=== PATIENT | female | born 1960 | race African-American/Black ===

== ENCOUNTER 2021-02-24 06:46 | Inpatient (IN) | payer MEDICAID, SELFPAY ==
[2021-02-24] VITALS (17 sets, daily range): BP systolic 117–167; BP diastolic 90–135; PULSE 43–137; RESP 18–26; TEMP 36.2–37.1; O2SAT 78–100; BMI 56.2
--- NOTE | ~2021-02-24 | XR_ITS ---
EXAMINATION: XR chest 1V portable DATE: 03/03/2021 15:13 INDICATION: Shortness of breath. Pneumonia. TECHNIQUE: A single frontal view of the chest was obtained. COMPARISON: Chest single view 02/24/2021 FINDINGS: There are bilateral perihilar airspace opacities. No pleural effusion or pneumothorax. Card iomegaly is noted. IMPRESSION: 1. Stable bilateral perihilar airspace opacities, consistent with mild pulmonary edema versus atypica l pneumonia. 2. Cardiomegaly. Reviewed, dictated and finalized at location A. IMPRESSION: 1. Stable bilateral perihilar airspace opacities, consistent with mild pulmonar y edema versus atypical pneumonia. 2. Cardiomegaly.
--- NOTE | ~2021-02-24 | XR_ITS ---
XR chest 1V portable DATE: 02/24/2021 07:16 INDICATION: Shortness of breath TECHNIQUE: Portable AP chest on 02/24/2021 at 0708 hours COMPARISON: None FINDINGS: There is cardiomegaly. There is aortic unfolding. There bilateral extensive pulmonary infiltrates, more prominent centrally, which may be secondary to pulmonary edema. Pneumonia is also considered in the differential diagnosis. No pleural effusion or pneumothorax is evident. Diffuse osteopenia. Thoracic scoliosis and degenerative spurring. IMPRESSION: Cardiomegaly and extensive bilateral pulmonary infiltrates; differential diagnosis includ es pulmonary edema and bilateral pneumonia Reviewed, dictated and finalized at location A. IMPRESSION: Cardiomegaly and extensive bilateral pulmonary infiltrates; differe ntial diagnosis includes pulmonary edema and bilateral pneumonia
--- NOTE | 2021-02-24 06:53 | ECG_ITS ---
Measurements Intervals [place] Rate: 136 P: NV: 0 QRS: 24 QRSD: 98 T: 218 QT: 304 QTc: 458 Interpretive Statements ATRIAL FIBRILLATION WITH RAPID VENTRICULAR RESPONSE VENTRICULAR PREMATURE COMPLEX BORDERLINE ST-T WAVE ABNORMALITY- INF/LAT LEADS ABNORMAL ECG Electronically Signed On 02-24-2021 7:34:59 CDT by Gerson Delong D.O.
--- NOTE | 2021-02-24 07:03 | ED.CHESTPAIN ---
HPI - Chest Pain General Chief Complaint: Chest Pain Stated Complaint: SOB, rapid heart rate Time Seen by Provider: 02/24/21 07:02 Source: patient and EMS Mode of arrival: EMS Limitations: no limitations History of Present Illness HPI narrative: Patient is a 60-year-old female with a history of morbid obesity, nonischemic cardiomyopathy, CHF, atrial fibrillation, hypertension who presents from home this morning for evaluation of shortness of breath. Patient states she has been short of breath over the past 24 hours. She denies cough, fever, but states she feels very weak. She denies loss of sense of taste or smell. She denies any abdominal pain, dysuria or hematuria. She states she has been eating and drinking enough. She lives at home with her daughter and grandson. Patient typically is able to ambulate short distances but has been unable to ambulate over the past 24 hours. She denies recent illnesses or history of Covid. Patient states that she is compliant with her medication. She denies any pleuritic pain. She denies any back pain. She denies any focal weakness or numbness. Last admission to this facility was in 2018, for CHF exacerbation secondary to atrial fibrillation with RVR. In past patient has been on Xarelto. 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 She states she has not been taking her anticoagulation. Related Data Allergies Allergy/AdvReac Type Severity Reaction Status Date / Time No Known Allergies Allergy Unverified 12/21/17 14:39 Review of Systems Review of Systems: Narrative: CONSTITUTIONAL: Denies fever, chills, or sweats. EYES: Denies visual changes ENT: Denies rhinorrhea, congestion, sore throat, or otalgia. CARDIOVASCULAR: Denies chest pain, palpitations, or edema. RESPIRATORY: Denies cough, reports shortness of breath GASTROINTESTINAL: Denies abdominal pain, nausea, vomiting, or diarrhea. GENITOURINARY: Denies dysuria or hematuria. SKIN: Denies rash or itching. MUSCULOSKELETAL: Denies back pain, joint pain, or myalgia. NEUROLOGIC: Denies headache, numbness, reports feeling diffusely weak PMFSH Social History Social History (Updated 02/24/21 @ 07:27 by Deepti Villanueva MD) Smoking status: Never smoker Alcohol intake: never Substance use: never Gender identity (if verbalized by the patient): Female Exam Narrative: Exam Narrative: GENERAL: Awake, alert, conversant HEAD: Normocephalic, atraumatic. EYES: PERRLA and EOMI. ENT: Nares clear, no rhinorrhea or epistaxis. Mucous membranes dry NECK: Supple. CHEST: No respiratory distress, crackles bilaterally of lower lobes, no tachypnea HEART: Normal rate, irregular rhythm ABDOMEN: Obese, Non distended, non tender EXTREMITIES: Normal range of motion.Bilateral lower extremity edema, 1+ mid shins SKIN: Warm, dry, no rashes. NEURO:No focal deficits. Alert and oriented x3 Course Vital Signs Vital signs: Vital Signs Temperature 36.7 C 02/24/21 06:36 Pulse Rate 127 H 02/24/21 06:36 Respiratory Rate 24 H 02/24/21 06:36 Blood Pressure 158/120 H 02/24/21 06:36 Pulse Oximetry 95 02/24/21 06:36 Temperature 36.7 C 02/24/21 06:36 Pulse Rate 121 H 02/24/21 08:08 Respiratory Rate 24 H 02/24/21 06:36 Blood Pressure 158/120 H 02/24/21 06:36 Pulse Oximetry 95 02/24/21 06:36 MDM - Chest Pain Differential Diagnosis Differential diagnosis: Likely stable angina, unstable angina pectoris, atypical chest pain, st elevation myocardial infarction and chest pain Lab Data Result diagrams: 02/24/21 06:55 02/24/21 06:55 Labs: Lab Results 02/24/21 02/24/21 02/24/21 Range/Units 06:55 06:55 06:55 WBC 5.8 (4.5-10.0) K/mm3 RBC 4.13 L (4.2-5.4) M/mm3 Hgb 13.1 (12.0-15.0) g/dL Hct 41.1 (37.0-47.0) % MCV 99.5 (80-100) fl MCH 31.7 (26-34) pg MCHC 31.9 L (32-36) g/dl RDW 17.2 H (11.5-14.5) % Plt Count 231 (150-375) k/mm3 MPV 10.3
[2021-02-24 07:13] LABS: Basophils Absolute Auto 0.1 K/mm3 (0.0-0.1); Eosinophils Absolute Auto 0.1 K/mm3 (0-0.3); Eosinophils Percent Auto 2.4 % (0-4.4); Hematocrit 41.1 % (37.0-47.0); Hemoglobin 13.1 g/dL (12.0-15.0); Immature Granulocyte Absolute 0.08 K/mm3 (0.00-0.031); Immature Granulocyte Percent A 1.4 % (0-0.5); Lymphocytes Absolute Auto 1.88 K/mm3 (0.9-3.2); Lymphocytes Percent Auto 32.2 % (18.3-44.2); Mean Corpuscular HGB Conc 31.9 g/dl (32-36); Mean Corpuscular Hemoglobin 31.7 pg (26-34); Mean Corpuscular Volume 99.5 fl (80-100); Mean Platelet Volume 10.3 fl (7.4-10.4); Monocytes Absolute Auto 0.7 K/mm3 (0.1-0.6); Monocytes Percent Auto 11.1 % (2.6-8.5); Neutrophils Percent Auto 51.9 % (45.5-73.1); Nucleated Red Blood Cells Absolute Auto 0.2 K/mm3 (0.0-0.012); Nucleated Red Blood Cells Perc 3.8 % (0.0-0.2); Platelet Count Result 231 k/mm3 (150-375); Red Blood Count 4.13 M/mm3 (4.2-5.4); Red Cell Distribution Width 17.2 % (11.5-14.5); White Blood Count 5.8 K/mm3 (4.5-10.0)
[2021-02-24 07:14] LABS: Alanine Aminotransferase 17 U/L (4-35); Albumin Level 4.1 g/dL (3.5-5.1); Alkaline Phosphatase 96 U/L (38-126); Anion Gap 10 mmol/L (8-16); Aspartate Amino Transferase 27 U/L (14-36); Bilirubin,Total 4.2 mg/dL (0.2-1.3); Blood Urea Nitrogen 14 mg/dL (7-17); Carbon Dioxide 27 mmol/L (22-30); Chloride 104 mmol/L (98-107); Estimated CRCL calculation 61 ml/min; Estimated Glomerular Filt Rate 50; Glucose 128 mg/dL (65-105); Potassium 3.9 mmol/L (3.4-5.0); Sodium 141 mmol/L (137-145)
[2021-02-24 07:43] LABS: NT Pro B Type Natriuretic Pept 3660 PG/ML (5-100)
[2021-02-24 08:07] LABS: INR 1.2; Prothrombin Time 15.6 Seconds (11.1-14.7)
[2021-02-24 08:08] LABS: Partial Thromboplastin Time 29.4 SECONDS (22.3-36.8)
[2021-02-24] MEDS: dilTIAZem HCl INJ 25 MG/5 ML VIAL 10 MG IV PUSH (08:12)
[2021-02-24] MEDS: SODIUM CHLORIDE 0.9% IV 500 ML 999 ML IV CONT (08:14)
[2021-02-24 08:28] LABS: Troponin I 0.021 ng/mL (0.000-0.034)
[2021-02-24] MEDS: FUROSEMIDE INJ 40 MG/4 ML VIAL IV PUSH ×2 (09:00→16:09)
--- NOTE | 2021-02-24 09:34 | PC.NURSE ---
Called to give report on pt. Was told that i will have to have that nurse call you back .
[2021-02-24 09:35] LABS: Lactic Acid Reflex 1.7 mmol/L (0.7-2.1)
--- NOTE | 2021-02-24 12:37 | PC.NURSE ---
This patient, Kate Perez, was admitted to IMU Room 213-01. Patient/family oriented to hospital policies and general routines including ID bracelet, bed and alarms, visiting hours, pain management, procedures, bathroom and other care routines, personal items, smoking policy, room service/diet, and visiting hours. Information on how to activate the Rapid Response Team has been discussed. Patient/Family are encouraged to report perceived risks to care and to ask questions if they do not understand what they are told or what they should do.
--- NOTE | 2021-02-24 13:10 | PM.IMHP ---
H&P: HPI History of Present Illness Date/Time: 02/24/21 13:10 <Christi Santos PA-C - Last Filed: 02/24/21 22:21> Chief Complaint: Shortness of breath. <Christi Santos PA-C - Last Filed: 02/24/21 22:21> Narrative: This is a 60-year-old morbidly obese female with a reported history of congestive heart failure, hypertension, and atrial fibrillation who presented to the emergency department earlier today via EMS from home for evaluation of shortness of breath. She is not a great historian and it does not sound as though she has followed up with any doctors for several years, with her last prescriptions being from April 2020. She has suffered from dyspnea on exertion for many years though it has gotten worse over the past week or so. She reports chronic lower extremity edema which is relatively unchanged but she has had periods of orthopnea and in fact was told that she needs sleep study sometime last year but she never had it done due to the COVID pandemic. On arrival to the emergency department today she was found to be in atrial fibrillation with rapid ventricular response for which she was started on a Cardizem drip with some improvement in her rate. Aside from feeling short of breath she does not really have symptoms of the AFib in specifically denies feelings of racing heart and palpitations. She does not drink any significant amounts of caffeine or alcohol. She has not had chest pain or pleuritic pain. Appetite has been good. No nausea or vomiting. She also denies fever, chills, sweats, cold and flu symptoms, and cough. No exposure to those positive for COVID-19. <Christi Santos PA-C - Last Filed: 02/24/21 22:21> Review of Systems Review of Systems: Narrative: Twelve systems were reviewed with pertinent positives and negatives as per HPI. Weight has remained stable if not up a bit from baseline. She has gotten progressively more debilitated over the past 1 year and it sounds like she uses a wheelchair a lot of the time due to weakness and deconditioning. No exertional chest pain. She does report hypersomnolence and orthopnea. No history of sleep apnea or diabetes. No thyroid disease. Except as documented, all other systems were reviewed and are negative. <Christi Santos PA-C - Last Filed: 02/24/21 22:21> [facility] Past Medical History Medical History: Medical History (Updated 02/24/21 @ 22:19 by Christi Santos PA-C) Arthritis Hypertension Morbid obesity Paroxysmal atrial fibrillation Shingles <Christi Santos PA-C - Last Filed: 02/24/21 22:21> Surgical History Surgical History: Surgical History (Updated 02/24/21 @ 22:13 by Christi Santos PA-C) No history of previous surgery <Christi Santos PA-C - Last Filed: 02/24/21 22:21> Family History Family History: Family History Mother Hypertension Other Dementia Pancreatic cancer <Christi Santos PA-C - Last Filed: 02/24/21 22:21> Social History Social History: Social History (Updated 02/24/21 @ 22:13 by Christi Santos PA-C) Social History: Surrogate decision maker: Charleen Perez, child. Code status: Full code. Smoking status: Never smoker Alcohol intake: never Substance use: never Additional living arrangements comments: Patient lives [place] with her daughter and grandson. 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 Gender identity (if verbalized by the patient): Female Spiritual care concerns: No <Christi Santos PA-C - Last Filed: 02/24/21 22:21> Meds Home Medications and Allergies Home medications: Home Medications Medication Instructions Recorded Confirmed Type No Home Medications 02/24/21 02/24/21 History <Christi Santos PA-C - Last Filed: 02/24/21 22:21> Allergies/Adverse reactions: Allergies Allergy/AdvRea
[2021-02-24 14:50] LABS: Troponin I 0.017 ng/mL (0.000-0.034)
[2021-02-24 15:07] LABS: Magnesium 1.7 mg/dL (1.6-2.3)
[2021-02-24 15:40] LABS: Hemoglobin A1C 5.6 % (<5.7)
--- NOTE | 2021-02-24 16:04 | PM.CNCAR ---
Assessment and Plan Additional Plan This is a 60-year-old black female with: History of some shortness of breath very little of any detail can be gleaned from her in terms of history of the onset of the symptoms. By physical exam she does not appear to be in a state of volume overload/decompensated heart failure. According to the record she has a long history of hypertension and atrial fibrillation and is not been on any of her medication for a while it would appear. As such it is not surprising that she is hypertensive and is in atrial fib with a rapid response. For the time being IV diltiazem has been used to try to provide rate control I am going to let this run for today up titrate her metoprolol and ALL-inhibitor therapy has been started. Probably tomorrow we will shift her to an oral anticoagulant. Her cardiac silhouette on chest x-ray looks quite large I will obtain an echocardiogram to look at left ventricular systolic function. It sounds like she has not had any direct cardiac follow-up in probably 2 or 3 years. Guru Berrios MD [facility] History of Present Illness History of Present Illness Consult date/time: 02/24/21 16:04 Consult reason: atrial fibrillation Reason For Visit: Pneumonia/A fib with RVR/CHF Narrative: This is a 60-year-old black female that I am seeing at the request of the hospitalist to assist with management of atrial fibrillation and shortness of breath. She is unknown to me and appears to have not been hospitalized here at [facility] in the past. Patient is an extremely poor historian recurrent terms of the details of any of this. She can't really provide any history as to the time course of the dyspnea or any other symptom she denies having any chest pain. She was seen in the emergency room earlier today and felt to be in congestive heart failure according to the chart she was treated with some intravenous diltiazem to provide heart rate control and admitted to the hospital. The patient recalls having seen a physician for cardiology services either at [place] or possibly [facility]. I did look in the electronic medical record in the office and the patient did see 1 of the physicians in the Department of Cardiology at [place] with the last appointment occurring about 3 years ago. At that time history indicated they were following this patient for atrial fibrillation and significant hypertension her medical regimen included amiodarone, moderate dose of metoprolol, systemic anticoagulation, losartan and hydralazine. The chart does indicate some evidence of renal insufficiency. According to the record and the patient sounds like she has not been on any of her medication for an unknown period of time she states that she had a hard time seeing her physician because of the pandemic and it sounds like rather suspicious that she has not been on any of her medication for some time. In the hospital she is in atrial fib with a moderately rapid ventricular response. Her chest x-ray shows very large cardiac silhouette and pulmonary congestion bilaterally. Other than being a very poor historian she denies any other specific complaints at this time. Review of Systems Review of Systems: ROS unobtainable: Yes unobtainable due to mental status PMFSH Past Medical History Medical History (Updated 02/24/21 @ 13:37 by Christi Santos PA-C) Arthritis Deep venous thrombosis Hypertension Morbid obesity Nonischemic cardiomyopathy Paroxysmal atrial fibrillation Pulmonary embolism Shingles Family History Family History (Updated 02/24/21 @ 13:16 by Christi Santos PA-C) Mother Hypertension Other Dementia Pancreatic cancer Social History Social History (Updated 02/24/21 @ 13:26 by Christi Santos PA-C) Social History: Surrogate decision maker: Charleen Perez, child. Code status: Full code. Smoking status: Never smoker Alcohol intake: never Substance use: never Additional living arrangements co
[2021-02-24] MEDS: ATORVASTATIN 40 MG TABLET PO (16:09)
[2021-02-24] MEDS: lisinopriL 20 MG TABLET PO (16:09)
[2021-02-24] MEDS: ENOXAPARIN 60 MG/0.6 ML SYRINGE 50 MG SUB-Q (16:10)
[2021-02-24] MEDS: ENOXAPARIN 100 MG/ML SYRINGE SUB-Q (16:10)
[2021-02-24] MEDS: METOPROLOL TARTRATE 50 MG TAB PO (18:26)
[2021-02-24 19:04] LABS: SARS-CoV-2 RNA PCR Negative
[2021-02-24] MEDS: TOLNAFTATE 1% POWDER 45 GM BTL 1 APPLIC TOPICAL (21:23)
[2021-02-25] VITALS (16 sets, daily range): BP systolic 113–149; BP diastolic 83–110; PULSE 82–115; RESP 12–20; TEMP 36.1–36.6; O2SAT 94–100
--- NOTE | 2021-02-25 | ECHO_ITS ---
Patient Info Name: Kate Perez Age: 60 years : 1960 Gender: Female Ht: 64 in Wt: 348 lbs BSA: 2.78 m2 HR: 110 bpm BP: 116 / 83 mmHg Technical Quality: Good Exam Date: 02/25/2021 8:59 AM Exam Location: [facility] Patient Status: Inpatient Admit Date: 02/24/2021 Staff Ordering Physician: Deepti Villanueva MD Dry Cleaner Hand: Oiron Shelton, SENDY, RT Attending Provider: Joelle Cook MD Referring Physician: Kay GONZALEZ; Exam Type: CA echo doppler color flow Study Info Indications I50.9 - Heart failure, unspecified Complete two-dimensional, color flow and Doppler transthoracic echocardiogram is performed. Summary 1. Complete two-dimensional, color flow and Doppler transthoracic echocardiogram is performed. 2. Borderline LV enlargement, mild LVH, variable contractility due to atrial fibrillation, ejection fraction approximately 40%; indeterminate diastolic function. Severe left atrial enlargement. Moderate mitral regurgitation, eccentric jet. Normal aortic valve without stenosis. Moderate to severe tricuspid regurgitation, moderate pulmonary hypertension, RVSP 51 mmHg. Dilated IVC. Left Ventricle Left ventricular chamber dimension is mildly enlarged. Left ventricular systolic function is moderately reduced, estimated at 35-40%. There is mildly increased left ventricular wall thickness. Left Atria Left atrial chamber dimension is severely enlarged. Right Atria Right atrial chamber dimension is normal. Aortic Valve The aortic valve is normal. There is no aortic valve stenosis. Pulmonic Valve The pulmonic valve is normal. There is trace pulmonic regurgitation. Mitral Valve The mitral valve has normal leaflets. There is mild to moderate mitral valve regurgitation. Tricuspid Valve The tricuspid valve leaflets are normal. There is moderate tricuspid valve regurgitation. Moderate pulmonary hypertension, estimated pulmonary arterial systolic pressure is 51 mmHg. Pericardium/Pleural The pericardium appears normal. Inferior Vena Cava Dilated inferior vena cava with <50% collapse upon inspiration consistent with elevated right atrial pressure, 15 mmHg. Aorta The aortic root size at the sinus of Valsalva is normal. Left Ventricular Outflow Tract Name Value Normal LVOT 2D LVOT Diameter 2.0 cm LVOT Doppler LVOT Peak Gradient 2 mmHg LVOT Mean Gradient 1 mmHg LVOT VTI 12 cm LVOT VTI/AV VTI Ratio 0.8 LVOT Stroke Volume 37 ml LVOT CO 3.6 l/min LVOT CI 1.3 l/min/m2 Mitral Valve Name Value Normal MV Doppler MV Peak Gradient 2 mmHg MV Mean Gradient 1 mmHg
[2021-02-25] MEDS: ENOXAPARIN 60 MG/0.6 ML SYRINGE 50 MG SUB-Q ×2 (03:16→17:45)
[2021-02-25] MEDS: ENOXAPARIN 100 MG/ML SYRINGE SUB-Q ×2 (03:16→17:46)
[2021-02-25 09:26] LABS: Hematocrit 37.9 % (37.0-47.0); Hemoglobin 11.8 g/dL (12.0-15.0); Mean Corpuscular HGB Conc 31.1 g/dl (32-36); Mean Corpuscular Hemoglobin 31.6 pg (26-34); Mean Corpuscular Volume 101.6 fl (80-100); Mean Platelet Volume 10.5 fl (7.4-10.4); Platelet Count Result 204 k/mm3 (150-375); Red Blood Count 3.73 M/mm3 (4.2-5.4); Red Cell Distribution Width 17.3 % (11.5-14.5); White Blood Count 6.2 K/mm3 (4.5-10.0)
[2021-02-25] MEDS: METOPROLOL TARTRATE 50 MG TAB PO ×2 (09:26→20:08)
[2021-02-25] MEDS: FUROSEMIDE INJ 40 MG/4 ML VIAL IV PUSH ×2 (09:26→17:46)
[2021-02-25] MEDS: TOLNAFTATE 1% POWDER 45 GM BTL 1 APPLIC TOPICAL ×2 (09:27→20:09)
[2021-02-25 09:32] LABS: Anion Gap 4 mmol/L (8-16); Blood Urea Nitrogen 18 mg/dL (7-17); Calcium 8.2 mg/dL (8.4-10.2); Carbon Dioxide 30 mmol/L (22-30); Chloride 106 mmol/L (98-107); Cholesterol 173 mg/dL (0-200); Estimated CRCL calculation 58 ml/min; Estimated Glomerular Filt Rate 50; Glucose 117 mg/dL (65-105); HDL Direct 25 mg/dL; Magnesium 1.5 mg/dL (1.6-2.3); Potassium 3.5 mmol/L (3.4-5.0); Sodium 140 mmol/L (137-145); Triglycerides 45 mg/dL (<150)
--- NOTE | 2021-02-25 09:37 | PM.PNCARD ---
Progress Note: A&P Assessment and Plan (1) Atrial fibrillation with rapid ventricular response: Code(s): I48.91 - Unspecified atrial fibrillation Status: Acute Assessment and Plan: Patient remains in atrial fibrillation with RVR with heart rates in 110s to 120s. Diltiazem was discontinued last night due to bradycardia with heart rates in 40s. Currently, patient's heart rates are in 110s to 120s. Bedside echocardiogram on my personal evaluation shows variable LV contractility with calculated EF about 35%. -continue metoprolol tartrate at current dose for now. -add ACEI or ARB when able. -anticoagulation with low-molecular weight heparin. Patient will need chronic anticoagulation at discharge, however, she apparently has history of noncompliance which is unfortunately going to make her care very challenging. Spoke with patient about importance of medication compliance and outpatient follow-up. Uncertain, if she was able to comprehend everything. -patient likely has OMEGA, which may need to be addressed as well. (2) Acute exacerbation of congestive heart failure: Code(s): I50.9 - Heart failure, unspecified Status: Acute Assessment and Plan: Continue diuresis with furosemide Subjective Date/time seen: 02/25/21 09:37 Date of Service: 02/25/2021 60-year-old female with history of atrial fibrillation,? CHF, noncompliance. Patient presented to the emergency department via EMS from home for evaluation of shortness of breath, found to be in atrial fibrillation with RVR. Interval history: Patient reports modest improvement in her shortness of breath. Denies chest pain. Her diltiazem was put on hold last night due to significant bradycardia with heart rate in 40s. Current heart rates are in 110s to 120s. Exam Narrative: Exam Narrative: PHYSICAL EXAMINATION: GENERAL: Morbidly obese, somewhat somnolent MENTAL STATUS: Flat affect EYES: Extraocular movements intact, no pallor EARS: External ears appear normal, hearing grossly normal NOSE: Normal and patent, no discharge MOUTH: Mucous membranes moist, tongue normal NECK: Thick neck CHEST: Decreased effort, decreased breath sounds HEART: Tachycardic, irregularly irregular rhythm ABDOMEN: Soft, nontender NEUROLOGICAL: Somnolent, speech coherent MUSCULOSKELETAL: No major deformity, no amputation EXTREMITIES: Mild pedal edema, no clubbing, no cyanosis SKIN: no rash on the exposed area, no cyanosis PSYCHIATRIC: Flat affect Objective Data Vital Signs Vital Signs: Vital Signs - 24 hr 02/24/21 10:18 02/24/21 10:49 02/24/21 12:00 Temperature 36.6 C 37.1 C Pulse Rate 89 134 H 111 H Respiratory Rate 22 H 20 24 H Blood Pressure 155/135 H 167/104 H 152/116 H Pulse Oximetry 100 100 100 02/24/21 13:32 02/24/21 14:00 02/24/21 16:00 Temperature 36.7 C Pulse Rate 120 H 118 H 137 H Respiratory Rate 26 H Blood Pressure 156/123 H Pulse Oximetry 98 02/24/21 16:08 02/24/21 18:00 02/24/21 18:26 Temperature Pulse Rate 120 H 113 H 128 H Respiratory Rate Blood Pressure Pulse Oximetry 02/24/21 20:00 02/24/21 21:00 02/24/21 22:00 Temperature 36.2 C L Pulse Rate 85 43 L 83 Respiratory Rate 22 H Blood Pressure 117/90 Pulse Oximetry 97 02/24/21 22:45 02/24/21 23:14 02/24/21 23:28 Temperature Pulse Rate 81 Respiratory Rate 18 Blood Pressure Pulse Oximetry 93 78 L 95 02/25/21 00:00 02/25/21 02:00 02/25/21 04:00 Temperature 36.3 C L 36.1 C L Pulse Rate 85 83 82 Respiratory Rate 16 18 Blood Pressure 113/95 H 116/83 Pulse Oximetry 95 97 02/25/21 06:00 02/25/21 08:00 02/25/21 09:26 Temperature 36.6 C Pulse Rate 84 99 93 Respiratory Rate 16 Blood Pressure 138/94 H Pulse Oximetry 100 Intake/Output Intake/Output: Intake & Output 02/22/21 02/23/21 02/24/21 02/25/21 23:59 23:59 23:59 23:59 Intake Total 1840 Output Total 1450 1000 Balance 390 -1000
[2021-02-25 09:43] LABS: LDL Cholesterol Direct 129 mg/dL
[2021-02-25] MEDS: PERFLUTREN LIPID MICROSPHERES 1.5 ML VIAL DILUTED TO 10 ML TOTAL VOLUME IV PUSH (09:45)
[2021-02-25] MEDS: ATORVASTATIN 40 MG TABLET PO (11:55)
[2021-02-25] MEDS: lisinopriL 20 MG TABLET PO (11:55)
[2021-02-25 15:23] LABS: Base Excess ABG 2.7 mEq/l (+/-2.0); Fractional Inspired Oxygen 28 %; HCO3 ABG 29.3 mEq/l (22.0-26.0); Oxygen Content ABG 16.6 %vol (16.0-22.0); Oxygen Saturation ABG 96.9 % (95.0-100.0); Oxyhemoglobin 95.6 % THb (90.0-100.0); PCO2 ABG 54.5 mmHg (35.0-45.0); PO2 ABG 96.3 mmHg (80.0-100.0); PO2 FiO2 Ratio Arterial Blood 3.44 %; Total Hemoglobin 12.3 g/dL (12.0-18.0); pH ABG 7.349 (7.350-7.450)
[2021-02-25 15:24] LABS: Device NASAL CANNULA; Modified Allen's Test Pass; Site Drawn LEFT RADIAL
--- NOTE | 2021-02-25 16:16 | PM.IMPN ---
Progress Note: A&P Assessment and Plan (1) Atrial fibrillation with rapid ventricular response: Code(s): I48.91 - Unspecified atrial fibrillation Status: Acute Assessment and Plan: She is currently on a Cardizem drip without much improvement in her rate. I have started her on metoprolol q.12 hours in the hopes that this will provide better rate control. She has been started on Lovenox 1 milligram/kilogram b.i.d. and she will need to switch to an oral anticoagulant tomorrow. She does have enlarged cardiac silhouette on imaging and an echocardiogram has been ordered for further evaluation. I will also check a TSH as well as apnea link. 02/25/21 16:16 patient is 60-year-old female with history of atrial fib, CHF, presented emergency depart with shortness of breath and patient was found and atrial fibrillation with RVR patient was started on diltiazem drip from urgency depart however patient had bradycardia and the drip was stopped, however this morning patient was seen by Cardiology and her heart rate was 110-120 and patient will started on metoprolol to control the rate, patient had a cardiac echo it showed ejection fraction of 35%, currently patient started heparin, unfortunately patient is very noncompliant with her medication and follow-up, will continue present managed and further recommendation to follow. (2) Acute exacerbation of congestive heart failure: Code(s): I50.9 - Heart failure, unspecified Status: Acute Assessment and Plan: The patient has findings suspicious for congestive heart failure with cardiomegaly, pulmonary infiltrates, and edema. She will be diuresed with close monitoring of I/O and daily weights. Echocardiogram pending as above. (3) Hypertension: Code(s): I10 - Essential (primary) hypertension Status: Acute Assessment and Plan: Blood pressures have been running high. As above she has been started on metoprolol and I will add lisinopril as well. Titrate doses as required. (4) Morbid obesity: Code(s): E66.01 - Morbid (severe) obesity due to excess calories Status: Acute Assessment and Plan: The patient needs to work on weight loss and getting up and about however she is very sedentary and spends a lot of time in a wheelchair. PT/OT consulted. (5) Person under investigation for COVID-19: Code(s): Z20.822 - Contact with and (suspected) exposure to COVID-19 Status: Acute Assessment and Plan: The patient was swabbed for COVID-19 emergency department and will remain in isolation pending SARS-CoV-2 by PCR which is felt to be unlikely. Subjective Date/time seen: 02/25/21 16:16 patient is 60-year-old female with history of atrial fib, CHF, presented emergency depart with shortness of breath and patient was found and atrial fibrillation with RVR patient was started on diltiazem drip from urgency depart however patient had bradycardia and the drip was stopped, however this morning patient was seen by Cardiology and her heart rate was 110-120 and patient will started on metoprolol to control the rate, patient had a cardiac echo it showed ejection fraction of 35%, currently patient started heparin, unfortunately patient is very noncompliant with her medication and follow-up, will continue present managed and further recommendation to follow. Review of Systems Review of Systems: All systems reviewed & are unremarkable except as noted in HPI and below Exam Narrative: Exam Narrative: Morbidly obese Patient is comfortable, NAD HEENT: eyes are clear and none icteric LUNGS: Bilateral fair airentry with rales and rhonchi HEART: Irregularly irregular ABD: BS+, Soft and nontender Lower extremities: no edema SKIN: nonjaundiced Neuro: grossly intact. Objective Data Vital Signs Vital Signs: Vital Signs - 24 hr 02/24/21 18:00 02/24/21 18:26 02/24/21 20:00 Temperature 97.1 F L Pulse Rate 113 H 128 H 85 Respirato
[2021-02-26] VITALS (16 sets, daily range): BP systolic 112–139; BP diastolic 75–98; PULSE 74–126; RESP 16–20; TEMP 36.1–36.4; O2SAT 96–100
[2021-02-26 06:29] LABS: Hematocrit 37.4 % (37.0-47.0); Hemoglobin 11.5 g/dL (12.0-15.0); Mean Corpuscular HGB Conc 30.7 g/dl (32-36); Mean Corpuscular Hemoglobin 31.3 pg (26-34); Mean Corpuscular Volume 101.9 fl (80-100); Mean Platelet Volume 10.3 fl (7.4-10.4); Platelet Count Result 185 k/mm3 (150-375); Red Blood Count 3.67 M/mm3 (4.2-5.4); Red Cell Distribution Width 17.2 % (11.5-14.5); White Blood Count 6.2 K/mm3 (4.5-10.0)
[2021-02-26] MEDS: ENOXAPARIN 60 MG/0.6 ML SYRINGE 50 MG SUB-Q (06:35)
[2021-02-26] MEDS: ENOXAPARIN 100 MG/ML SYRINGE SUB-Q (06:35)
[2021-02-26 06:42] LABS: Anion Gap 4 mmol/L (8-16); Blood Urea Nitrogen 19 mg/dL (7-17); Calcium 7.4 mg/dL (8.4-10.2); Carbon Dioxide 32 mmol/L (22-30); Chloride 105 mmol/L (98-107); Estimated CRCL calculation 59 ml/min; Estimated Glomerular Filt Rate 50; Glucose 89 mg/dL (65-105); Potassium 3.7 mmol/L (3.4-5.0); Sodium 141 mmol/L (137-145)
[2021-02-26] MEDS: TOLNAFTATE 1% POWDER 45 GM BTL 1 APPLIC TOPICAL ×2 (08:50→20:06)
[2021-02-26] MEDS: METOPROLOL TARTRATE 50 MG TAB PO ×2 (08:51→20:06)
[2021-02-26] MEDS: lisinopriL 20 MG TABLET PO (08:51)
[2021-02-26] MEDS: ATORVASTATIN 40 MG TABLET PO (08:51)
[2021-02-26] MEDS: FUROSEMIDE INJ 40 MG/4 ML VIAL IV PUSH ×2 (08:52→17:43)
--- NOTE | 2021-02-26 09:15 | PM.PNCARD ---
Progress Note: A&P Additional Plan 60-year-old patient with: Hypertension and chronic atrial fibrillation doing quite well after resuming beta-ubaldo ALL-inhibitor heart rate is reasonably well controlled. Today I will transition her from Lovenox to Xarelto for systemic anticoagulation. The notes that are in the record from her physician in [place] indicate she was on Xarelto previously. Obviously the principal concern is compliance with medication and follow-up after discharge. Prognosis is guarded Guru Berrios MD [facility] Subjective Date/time seen: Date of service: 02/26/21 09:15 Interval history: Follow-up visit in this 60-year-old lady with: Chronic hypertension and chronic atrial fibrillation of both under poor control on admission because she was noncompliant with all of her medication. Morbid obesity Patient is feeling somewhat better today. Is seated on the end of the bed with physical therapy trying to assist her to ambulate. Exam Narrative: Exam Narrative: PHYSICAL EXAMINATION: GENERAL: Morbidly obese, somewhat somnolent MENTAL STATUS: Flat affect EYES: Extraocular movements intact, no pallor EARS: External ears appear normal, hearing grossly normal NOSE: Normal and patent, no discharge MOUTH: Mucous membranes moist, tongue normal NECK: Thick neck CHEST: Decreased effort, decreased breath sounds HEART: Tachycardic, irregularly irregular rhythm ABDOMEN: Soft, nontender NEUROLOGICAL: Somnolent, speech coherent MUSCULOSKELETAL: No major deformity, no amputation EXTREMITIES: Mild pedal edema, no clubbing, no cyanosis SKIN: no rash on the exposed area, no cyanosis PSYCHIATRIC: Flat affect Const: General: comfortable and no acute distress Other: Morbidly obese black female no obvious distress laying supine in bed BMI is 56.3. HENMT: Mouth: Yes dry mucous membranes Eyes: Sclera: sclerae normal Neck: Neck: supple Other: No ability to assess venous distention given her body habitus Resp: Effort & Inspection: normal respiratory effort Auscultation: clear to auscultation bilaterally Other: Breath sounds are remarkably clear to auscultation posteriorly bilaterally. No obvious pulmonary rales no wheezing Cardio: Rhythm: abnormal rhythm irregularly irregular GI: Auscultation: normal bowel sounds Skin: General skin exam: normal color Neuro: Other: Patient answers questions appropriately but cognition is very slow Extrem: Other: No peripheral edema is noted Objective Data Vital Signs Vital Signs: Vital Signs - 24 hr 02/25/21 09:26 02/25/21 10:00 02/25/21 12:00 Temperature 36.5 C Pulse Rate 93 94 103 H Respiratory Rate 12 Blood Pressure 131/95 H Pulse Oximetry 97 02/25/21 14:00 02/25/21 15:03 02/25/21 16:00 Temperature 36.6 C Pulse Rate 86 103 H Respiratory Rate 12 Blood Pressure 133/110 H Pulse Oximetry 96 95 02/25/21 18:00 02/25/21 20:00 02/25/21 20:08 Temperature 36.1 C L Pulse Rate 107 H 103 H 101 H Respiratory Rate 20 Blood Pressure 149/102 H Pulse Oximetry 98 02/25/21 22:00 02/25/21 23:18 02/26/21 00:00 Temperature 36.3 C L Pulse Rate 96 83 119 H Respiratory Rate 18 Blood Pressure 129/97 H Pulse Oximetry 99 99 02/26/21 02:00 02/26/21 04:00 02/26/21 06:00 Temperature 36.3 C L Pulse Rate 92 92 97 Respiratory Rate 20 Blood Pressure 119/75 Pulse Oximetry 97 02/26/21 08:00 02/26/21 08:51 02/26/21 08:55 Temperature 36.1 C L Pulse Rate 102 H 100 Respiratory Rate 16 Blood Pressure 131/98 H Pulse Oximetry 100 96 Intake/Output Intake/Output: Intake & Output 02/23/21 02/24/21 02/25/21 02/26/21 23:59 23:59 23:59 23:59 Intake Total 1840 1020 300 Output Total 1450 3250 1025 Balance 586 -8312 -527 Meds/Results Medications: Active Medications Generic Name Dose Route Start Last Admin Trade Name Freq PRN Reason Stop Dose Admin Acetaminophen 650 mg 02/24/21 08:39 Ac
[2021-02-26] MEDS: RIVAROXABAN 20 MG TABLET PO (17:43)
--- NOTE | 2021-02-26 19:06 | PM.IMPN ---
Progress Note: A&P Assessment and Plan (1) Atrial fibrillation with rapid ventricular response: Code(s): I48.91 - Unspecified atrial fibrillation Status: Acute Assessment and Plan: 02/25/2021 She is currently on a Cardizem drip without much improvement in her rate. I have started her on metoprolol q.12 hours in the hopes that this will provide better rate control. She has been started on Lovenox 1 milligram/kilogram b.i.d. and she will need to switch to an oral anticoagulant tomorrow. She does have enlarged cardiac silhouette on imaging and an echocardiogram has been ordered for further evaluation. I will also check a TSH as well as apnea link. 02/25/21 16:16 patient is 60-year-old female with history of atrial fib, CHF, presented emergency depart with shortness of breath and patient was found and atrial fibrillation with RVR patient was started on diltiazem drip from urgency depart however patient had bradycardia and the drip was stopped, however this morning patient was seen by Cardiology and her heart rate was 110-120 and patient will started on metoprolol to control the rate, patient had a cardiac echo it showed ejection fraction of 35%, currently patient started heparin, unfortunately patient is very noncompliant with her medication and follow-up, will continue present managed and further recommendation to follow. 02/26/2021 Cardiology following has titrated her medication with improved heart rate control Transitioned back to OAC today Will monitor overnight and reassess medications tomorrow Transfer to telemetry floor (2) Acute exacerbation of congestive heart failure: Code(s): I50.9 - Heart failure, unspecified Status: Acute Assessment and Plan: 02/25/2021 The patient has findings suspicious for congestive heart failure with cardiomegaly, pulmonary infiltrates, and edema. She will be diuresed with close monitoring of I/O and daily weights. Echocardiogram pending as above. 02/26/2021 Patient is -4 L creatinine and BUN remain stable Patient continues with Muro new order placed Strict eyes and nose Fluid restriction Diuretics Cardiology following (3) Hypertension: Code(s): I10 - Essential (primary) hypertension Status: Acute Assessment and Plan: 02/25/2021 Blood pressures have been running high. As above she has been started on metoprolol and I will add lisinopril as well. Titrate doses as required. 02/26/2021 Blood pressure improved continue current care (4) Morbid obesity: Code(s): E66.01 - Morbid (severe) obesity due to excess calories Status: Acute Assessment and Plan: The patient needs to work on weight loss and getting up and about however she is very sedentary and spends a lot of time in a wheelchair. PT/OT consulted. (5) Person under investigation for COVID-19: Code(s): Z20.822 - Contact with and (suspected) exposure to COVID-19 Status: Acute Assessment and Plan: 02/25/2021 The patient was swabbed for COVID-19 emergency department and will remain in isolation pending SARS-CoV-2 by PCR which is felt to be unlikely. 02/26/2021 COVID negative Subjective Date/time seen: 02/26/21 19:06 Patient hypersomnolent refusing to wake up for physical examination RN bedside reports that this is her baseline mental status status post CVA and that she has been extensively worked up by preceding physician. Review of medical record seen by Cardiology earlier in the morning and was reported to have cognitive slowing as well. Exam Narrative: Exam Narrative: GEN: NAD, uncooperative morbid obese HEENT: NCAT, MMM, EOMI Neck: no JVD Heart: IRR Lungs: Crackles Abd: soft, NT, ND, bowel sounds normoactive Objective Data Vital Signs Vital Signs: Vital Signs - 24 hr 02/25/21 20:00 02/25/21 20:08 02/25/21 22:00 Temperature 97.0 F L Pulse Rate 103 H 101 H 96 Respiratory Rate 20 Blood Pressure 149/102 H Pulse Oximetry
[2021-02-27] VITALS (15 sets, daily range): BP systolic 126–139; BP diastolic 77–86; PULSE 77–122; RESP 18–20; TEMP 36.2–36.8; O2SAT 93–100
[2021-02-27 05:26] LABS: Basophils Percent Auto 0.8 % (0.2-1.2); Eosinophils Absolute Auto 0.3 K/mm3 (0-0.3); Hematocrit 36.3 % (37.0-47.0); Hemoglobin 11.2 g/dL (12.0-15.0); Immature Granulocyte Absolute 0.02 K/mm3 (0.00-0.031); Immature Granulocyte Percent A 0.4 % (0-0.5); Lymphocytes Absolute Auto 1.48 K/mm3 (0.9-3.2); Lymphocytes Percent Auto 28.7 % (18.3-44.2); Mean Corpuscular HGB Conc 30.9 g/dl (32-36); Mean Corpuscular Hemoglobin 31.7 pg (26-34); Mean Corpuscular Volume 102.8 fl (80-100); Mean Platelet Volume 10.2 fl (7.4-10.4); Monocytes Absolute Auto 0.8 K/mm3 (0.1-0.6); Monocytes Percent Auto 15.1 % (2.6-8.5); Neutrophils Absolute Auto 2.6 K/mm3 (1.3-6.7); Platelet Count Result 187 k/mm3 (150-375); Red Blood Count 3.53 M/mm3 (4.2-5.4); Red Cell Distribution Width 17.1 % (11.5-14.5); White Blood Count 5.2 K/mm3 (4.5-10.0)
[2021-02-27 05:30] LABS: Alanine Aminotransferase 14 U/L (4-35); Alkaline Phosphatase 77 U/L (38-126); Anion Gap 2 mmol/L (8-16); Aspartate Amino Transferase 19 U/L (14-36); Bilirubin,Total 0.6 mg/dL (0.2-1.3); Blood Urea Nitrogen 17 mg/dL (7-17); Calcium 7.4 mg/dL (8.4-10.2); Carbon Dioxide 38 mmol/L (22-30); Chloride 100 mmol/L (98-107); Estimated CRCL calculation 64 ml/min; Estimated Glomerular Filt Rate 55; Glucose 81 mg/dL (65-105); Magnesium 1.3 mg/dL (1.6-2.3); Potassium 3.6 mmol/L (3.4-5.0); Sodium 140 mmol/L (137-145)
[2021-02-27] MEDS: TOLNAFTATE 1% POWDER 45 GM BTL 1 APPLIC TOPICAL ×2 (09:09→21:24)
[2021-02-27] MEDS: FUROSEMIDE INJ 40 MG/4 ML VIAL IV PUSH ×2 (09:09→17:30)
[2021-02-27] MEDS: METOPROLOL TARTRATE 50 MG TAB PO ×2 (09:09→21:24)
[2021-02-27] MEDS: ATORVASTATIN 40 MG TABLET PO (09:09)
[2021-02-27] MEDS: lisinopriL 20 MG TABLET PO (09:09)
--- NOTE | 2021-02-27 10:40 | PC.NURSE ---
This patient, Kate Perez, was transferred to [[id number]] on 02/27/21 at 1040. Personal belongings sent with patient. Report given to [Caleb CAMACHO]. Appropriate documentation sent with patient.
--- NOTE | 2021-02-27 10:53 | PM.PNCARD ---
Progress Note: A&P Assessment and Plan (1) Atrial fibrillation with rapid ventricular response: Code(s): I48.91 - Unspecified atrial fibrillation Status: Acute Assessment and Plan: Patient remains in atrial fibrillation with RVR with heart rates in 110s to 120s. Diltiazem was discontinued last night due to bradycardia with heart rates in 40s. Currently, patient's heart rates are in 110s to 120s. Bedside echocardiogram on my personal evaluation shows variable LV contractility with calculated EF about 35%. -continue metoprolol tartrate, lisinopril at current dose for now. On Xarelto -patient likely has OMEGA, which may need to be addressed as well. (2) Acute exacerbation of congestive heart failure: Code(s): I50.9 - Heart failure, unspecified Status: Acute Assessment and Plan: Continue diuresis with furosemide (3) Electrolyte abnormality: Code(s): E87.8 - Other disorders of electrolyte and fluid balance, not elsewhere classified Status: Acute Assessment and Plan: Potassium chloride 40 mg p.o. x1. 4 g of IV magnesium x1. (4) Hypertension: Code(s): I10 - Essential (primary) hypertension Status: Acute Assessment and Plan: Reasonably controlled Subjective Date/time seen: 02/27/21 10:53 Interval history: Follow-up visit in this 60-year-old lady with: Chronic hypertension and chronic atrial fibrillation of both under poor control on admission because she was noncompliant with all of her medication. Morbid obesity Date of service 02/27/2021: She is in the process of moving to the 3rd floor. She denies any chest pain shortness breath. No swelling Review of Systems Review of Systems: All systems reviewed & are unremarkable except as noted in HPI and below Constitutional: Constitutional: Reports weakness Eyes: Eyes: Denies blurry vision ENT: Reports Normal hearing present Cardiovascular: Cardiovascular: Denies chest pain Respiratory: Respiratory: Denies dyspnea Gastrointestinal: Gastrointestinal: Denies abdominal pain Genitourinary: Genitourinary: Denies hematuria Musculoskeletal: Musculoskeletal: Denies neck pain Integumentary/Breasts: Skin/Breast: Denies dry skin Neurologic: Denies headache(s) Psychiatric: Psychiatric: Denies anxiety Endocrine: Endocrine: Denies excessive sweating Hematologic/Lymphatic: Hematologic/Lymphatic: Denies easy bleeding Allergic/Immunologic: Allergic/Immunologic: Denies GI upset with certain foods Exam Narrative: Exam Narrative: PHYSICAL EXAMINATION: GENERAL: Morbidly obese, somewhat somnolent MENTAL STATUS: Flat affect EYES: Extraocular movements intact, no pallor EARS: External ears appear normal, hearing grossly normal NOSE: Normal and patent, no discharge MOUTH: Mucous membranes moist, tongue normal NECK: Thick neck CHEST: Decreased effort, decreased breath sounds HEART: Tachycardic, irregularly irregular rhythm ABDOMEN: Soft, nontender NEUROLOGICAL: Somnolent, speech coherent MUSCULOSKELETAL: No major deformity, no amputation EXTREMITIES: Trivial pedal edema, no clubbing, no cyanosis SKIN: no rash on the exposed area, no cyanosis PSYCHIATRIC: Flat affect Objective Data Vital Signs Vital Signs: Vital Signs - 24 hr 02/26/21 12:00 02/26/21 14:00 02/26/21 16:00 Temperature 36.2 C L 36.2 C L Pulse Rate 126 H 92 86 Respiratory Rate 18 18 Blood Pressure 112/87 133/82 Pulse Oximetry 99 100 02/26/21 18:00 02/26/21 20:00 02/26/21 20:06 Temperature 36.2 C L Pulse Rate 80 106 H 100 Respiratory Rate 18 Blood Pressure 139/93 H Pulse Oximetry 99 02/26/21 22:00 02/26/21 23:55 02/27/21 00:00 Temperature 36.4 C L Pulse Rate 74 83 83 Respiratory Rate 20 Blood Pressure 124/78 Pulse Oximetry 99 99 02/27/21 02:00 02/27/21 04:00 02/27/21 06:00 Temperature 36.2 C L Pulse Rate 82 84 95 Respiratory Rate 18 Blood Pressure 139/86 Puls
[2021-02-27] MEDS: MAGNESIUM SULF 4 GM/WATER100ML 4 GM/100 ML BAG IVPB (12:49)
[2021-02-27] MEDS: POTASSIUM CHLORIDE 20 MEQ TABLET 40 MEQ PO (12:49)
--- NOTE | 2021-02-27 15:30 | PM.IMPN ---
Progress Note: A&P Assessment and Plan (1) Acute exacerbation of CHF (congestive heart failure): Qualifiers: Heart failure type: unspecified Qualified Code(s): I50.9 - Heart failure, unspecified Code(s): I50.9 - Heart failure, unspecified Status: Acute (2) Hypertension: Code(s): I10 - Essential (primary) hypertension Status: Acute (3) Electrolyte abnormality: Code(s): E87.8 - Other disorders of electrolyte and fluid balance, not elsewhere classified Status: Acute (4) Morbid obesity: Code(s): E66.01 - Morbid (severe) obesity due to excess calories Status: Acute Additional Plan 02/25/2021 She is currently on a Cardizem drip without much improvement in her rate. I have started her on metoprolol q.12 hours in the hopes that this will provide better rate control. She has been started on Lovenox 1 milligram/kilogram b.i.d. and she will need to switch to an oral anticoagulant tomorrow. She does have enlarged cardiac silhouette on imaging and an echocardiogram has been ordered for further evaluation. I will also check a TSH as well as apnea link. 02/25/21 16:16 patient is 60-year-old female with history of atrial fib, CHF, presented emergency depart with shortness of breath and patient was found and atrial fibrillation with RVR patient was started on diltiazem drip from urgency depart however patient had bradycardia and the drip was stopped, however this morning patient was seen by Cardiology and her heart rate was 110-120 and patient will started on metoprolol to control the rate, patient had a cardiac echo it showed ejection fraction of 35%, currently patient started heparin, unfortunately patient is very noncompliant with her medication and follow-up, will continue present managed and further recommendation to follow. 02/26/2021 Cardiology following has titrated her medication with improved heart rate control Transitioned back to OAC today Will monitor overnight and reassess medications tomorrow Patient is -4 L creatinine and BUN remain stable Patient continues with Muro new order placed Strict Is and Os Fluid restriction Diuretics 02/27/2021 Patient found to have reduced ejection fraction of 35% on echocardiogram She continues with diuresis Potassium magnesium repleted per cardiology Atrial fibrillation is uncontrolled patient intolerant to diltiazem will be maintained on metoprolol better rate control Anticipate congestive heart failure to improve as atrial fibrillation improves Patient poorly compliant will need very close follow-up outpatient Time Spent With Patient Time with patient: 25 - 35 minutes Subjective Date/time seen: 02/27/21 15:30 Patient alert and oriented today and appropriate. She requested a Muro catheter discontinued. No reviewed by cardiology patient bradycardic overnight and her diltiazem was discontinued. She will be maintained on metoprolol with titrating up doses currently patient is tachycardic in the 110s 120 Exam Narrative: Exam Narrative: GEN: NAD, AAOx3, cooperative super morbid obesity HEENT: NCAT, MMM, EOMI Lungs: No use of accessory muscles, symmetric chest rise , aerating well Abd: soft, NT, ND, bowel sounds normoactive Ext: moves all, no cyanosis, no clubbing, no pitting edema Objective Data Vital Signs Vital Signs: Vital Signs - 24 hr 02/26/21 16:00 02/26/21 18:00 02/26/21 20:00 Temperature 97.2 F L 97.1 F L Pulse Rate 86 80 106 H Respiratory Rate 18 18 Blood Pressure 133/82 139/93 H Pulse Oximetry 100 99 02/26/21 20:06 02/26/21 22:00 02/26/21 23:55 Temperature 97.5 F L Pulse Rate 100 74 83 Respiratory Rate 20 Blood Pressure 124/78 Pulse Oximetry 99 02/27/21 00:00 02/27/21 02:00 02/27/21 04:00 Temperature 97.1 F L Pulse Rate 83 82 84 Respiratory Rate 18 Blood Pressure 139/86 Pulse Oximetry 99 100 02/27/21 06:00 02/27/21 08:00 02/27/21 08:14 Temperature 98.2 F Pulse Rate 95 122
[2021-02-27] MEDS: RIVAROXABAN 20 MG TABLET PO (17:31)
[2021-02-28] VITALS (12 sets, daily range): BP systolic 135–144; BP diastolic 84–92; PULSE 93–121; RESP 18–20; TEMP 36.4–36.6; O2SAT 93–96
[2021-02-28 06:01] LABS: Hemoglobin 11.2 g/dL (12.0-15.0); Mean Corpuscular HGB Conc 31.1 g/dl (32-36); Mean Corpuscular Volume 99.7 fl (80-100); Mean Platelet Volume 10.1 fl (7.4-10.4); Platelet Count Result 196 k/mm3 (150-375); Red Blood Count 3.61 M/mm3 (4.2-5.4); Red Cell Distribution Width 16.8 % (11.5-14.5); White Blood Count 5.8 K/mm3 (4.5-10.0)
[2021-02-28 06:18] LABS: Anion Gap 3 mmol/L (8-16); Blood Urea Nitrogen 20 mg/dL (7-17); Carbon Dioxide 38 mmol/L (22-30); Chloride 99 mmol/L (98-107); Estimated CRCL calculation 64 ml/min; Estimated Glomerular Filt Rate 55; Glucose 87 mg/dL (65-105); Magnesium 1.9 mg/dL (1.6-2.3); Potassium 3.8 mmol/L (3.4-5.0); Sodium 140 mmol/L (137-145)
[2021-02-28] MEDS: ATORVASTATIN 40 MG TABLET PO (08:13)
[2021-02-28] MEDS: TOLNAFTATE 1% POWDER 45 GM BTL 1 APPLIC TOPICAL ×2 (08:13→20:10)
[2021-02-28] MEDS: lisinopriL 20 MG TABLET PO (08:13)
[2021-02-28] MEDS: FUROSEMIDE INJ 40 MG/4 ML VIAL IV PUSH ×2 (08:13→16:29)
[2021-02-28] MEDS: METOPROLOL TARTRATE 50 MG TAB PO ×2 (08:13→20:08)
--- NOTE | 2021-02-28 13:02 | PM.PNCARD ---
Progress Note: A&P Additional Plan 60-year-old black female with: Chronic essential hypertension and chronic atrial fibrillation the patient is noncompliant with medication for a long time at the time of admission is doing well now on the current regimen and I do not recommend any adjustments of her medical regimen today. From the cardiac perspective she could be discharged for outpatient follow-up. Patient is asking me about pneumonia that she believe she was found to have while she is here. Those questions of course are deferred to the primary team. Guru Berrios MD [facility] Subjective Date/time seen: Date of service: 02/28/21 13:02 Interval history: Follow-up visit in this 60-year-old lady with: Chronic hypertension and chronic atrial fibrillation of both under poor control on admission because she was noncompliant with all of her medication. Morbid obesity Date of service 02/28/2021: Patient offers no cardiovascular complaints. She is seated in the chair reports no sense of air hunger chest pain or palpitations. Exam Const: General: comfortable and no acute distress Other: Morbidly obese black female seated in the chair watching television does not appear to be in any distress at all. HENMT: Mouth: Yes moist mucous membranes Eyes: Sclera: sclerae normal Pupils: Equal, round and reactive pupils present Neck: Neck: supple Thyroid: thyroid normal Other: Difficult to assess JVD given body habitus Resp: Effort & Inspection: normal respiratory effort Auscultation: clear to auscultation bilaterally Other: No rales no rhonchi no wheezing Cardio: Rhythm: abnormal rhythm irregularly irregular GI: GI Palp: Yes Soft to palpation Auscultation: normal bowel sounds Neuro: Cognition (Neuro): normal cognition Extrem: Other: Obese for minimal pitting edema adequate arterial pulses Objective Data Vital Signs Vital Signs: Vital Signs - 24 hr 02/27/21 14:00 02/27/21 15:34 02/27/21 20:00 Temperature 36.8 C Pulse Rate 95 100 104 H Respiratory Rate 20 20 Blood Pressure 126/77 Pulse Oximetry 93 94 02/27/21 20:14 02/27/21 21:24 02/27/21 21:47 Temperature 36.8 C Pulse Rate 105 H 104 H Respiratory Rate 20 Blood Pressure 129/81 Pulse Oximetry 94 94 02/28/21 00:00 02/28/21 04:00 02/28/21 05:28 Temperature 36.6 C Pulse Rate 93 94 96 Respiratory Rate 20 Blood Pressure 139/84 Pulse Oximetry 93 02/28/21 08:00 02/28/21 08:13 Temperature Pulse Rate 113 H 112 H Respiratory Rate Blood Pressure Pulse Oximetry Intake/Output Intake/Output: Intake & Output 02/25/21 02/26/21 02/27/21 02/28/21 23:59 23:59 23:59 23:59 Intake Total 3243 911 8156 590 Output Total 3250 4025 4100 1999 [facility] -2230 -[id number] -2150 -1410 Meds/Results Medications: Active Medications Generic Name Dose Route Start Last Admin Trade Name Freq PRN Reason Stop Dose Admin Acetaminophen 650 mg 02/24/21 08:39 Acetaminophen 325 Mg Tablet PO Q4H PRN Mild Pain (1-3) or Fever Atorvastatin Calcium 40 mg 02/24/21 09:00 02/28/21 08:13 Atorvastatin 40 Mg Tablet PO 40 mg DAILY KAYLA Administration Furosemide 40 mg 02/24/21 17:00 02/28/21 08:13 Furosemide Inj 40 Mg/4 Ml Vial IV PUSH 40 mg BID KAYLA Administration Ceftriaxone Sodium/Dextrose 1 gm in 50 mls @ 100 mls/hr 02/25/21 09:00 02/28/21 08:23 Rocephin 1 Gm/D5w 50 Ml IVPB 100 mls/hr Q24H KAYLA Administration Azithromycin 500 mg in 250 mls @ 250 mls/hr 02/25/21 09:00 02/28/21 09:27 Zithromax IVPB 250 mls/hr Q24H KAYLA Administration Lisinopril 20 mg 02/24/21 09:00 02/28/21 08:13 Lisinopril 20 Mg Tablet PO 20 mg QAM KAYLA Administration Metoprolol Tartrate 50 mg 02/24/21 21:00 02/28/21 08:13 Metoprolol Tartrate 50 Mg Tab PO 50 mg Q12HR KAYLA Administration Rivaroxaban 20 mg 02/26/21 17:00 02/27/21 17:31 Rivaroxaban 20 Mg Tablet PO 20 mg DAILY@1700 [facility] Administratio
--- NOTE | 2021-02-28 15:41 | PM.IMPN ---
Progress Note: A&P Assessment and Plan (1) Acute exacerbation of CHF (congestive heart failure): Qualifiers: Heart failure type: unspecified Qualified Code(s): I50.9 - Heart failure, unspecified Code(s): I50.9 - Heart failure, unspecified Status: Acute (2) Hypertension: Code(s): I10 - Essential (primary) hypertension Status: Acute Assessment and Plan: 02/25/2021 Blood pressures have been running high. As above she has been started on metoprolol and I will add lisinopril as well. Titrate doses as required. 02/26/2021 Blood pressure improved continue current care (3) Electrolyte abnormality: Code(s): E87.8 - Other disorders of electrolyte and fluid balance, not elsewhere classified Status: Acute (4) Morbid obesity: Code(s): E66.01 - Morbid (severe) obesity due to excess calories Status: Acute Assessment and Plan: 02/25/2021 She is currently on a Cardizem drip without much improvement in her rate. I have started her on metoprolol q.12 hours in the hopes that this will provide better rate control. She has been started on Lovenox 1 milligram/kilogram b.i.d. and she will need to switch to an oral anticoagulant tomorrow. She does have enlarged cardiac silhouette on imaging and an echocardiogram has been ordered for further evaluation. I will also check a TSH as well as apnea link. 02/25/21 16:16 patient is 60-year-old female with history of atrial fib, CHF, presented emergency depart with shortness of breath and patient was found and atrial fibrillation with RVR patient was started on diltiazem drip from urgency depart however patient had bradycardia and the drip was stopped, however this morning patient was seen by Cardiology and her heart rate was 110-120 and patient will started on metoprolol to control the rate, patient had a cardiac echo it showed ejection fraction of 35%, currently patient started heparin, unfortunately patient is very noncompliant with her medication and follow-up, will continue present managed and further recommendation to follow. 02/26/2021 Cardiology following has titrated her medication with improved heart rate control Transitioned back to OAC today Will monitor overnight and reassess medications tomorrow Patient is -4 L creatinine and BUN remain stable Patient continues with Muro new order placed Strict Is and Os Fluid restriction Diuretics 02/27/2021 Patient found to have reduced ejection fraction of 35% on echocardiogram She continues with diuresis Potassium magnesium repleted per cardiology Atrial fibrillation is uncontrolled patient intolerant to diltiazem will be maintained on metoprolol better rate control Anticipate congestive heart failure to improve as atrial fibrillation improves Patient poorly compliant will need very close follow-up outpatient 02/28/21 Patient successfully diuresed Muro catheter discontinued The patient needs to work on weight loss and getting up and about however she is very sedentary and spends a lot of time in a wheelchair. PT/OT consulted to help assess safe discharge planning; needs Continue current care Time Spent With Patient Time with patient: 25 - 35 minutes Subjective Date/time seen: 02/28/21 15:41 Patient doing okay requesting to have Muro catheter removed would like to go home she is advised that she [facility] to [facility] unless she is able to stand and transfer independently to bedside commode. Patient is reviewed PT today and she is unsuccessful at standing and transferring independently. Will discuss with her daughter ongoing discharge planning. Exam Narrative: Exam Narrative: GEN: NAD, AAOx3, cooperative super morbid obesity HEENT: NCAT, MMM, EOMI Lungs: No use of accessory muscles, symmetric chest rise , aerating well Abd: soft, NT, ND, bowel sounds normoactive Ext: moves all, no cyanosis, no clubbing, no pitting edema Objective Data Vital Signs Vital Signs
[2021-02-28] MEDS: RIVAROXABAN 20 MG TABLET PO (16:29)
[2021-02-28 21:02] LABS: SARS-CoV-2 RNA PCR Negative
[2021-03-01] VITALS (15 sets, daily range): BP systolic 118–137; BP diastolic 81–92; PULSE 102–148; RESP 18–20; TEMP 36–36.9; O2SAT 97–99
[2021-03-01 05:57] LABS: Hematocrit 39.3 % (37.0-47.0); Hemoglobin 12.2 g/dL (12.0-15.0); Mean Corpuscular Hemoglobin 31.5 pg (26-34); Mean Corpuscular Volume 101.6 fl (80-100); Mean Platelet Volume 9.9 fl (7.4-10.4); Platelet Count Result 217 k/mm3 (150-375); Red Blood Count 3.87 M/mm3 (4.2-5.4); Red Cell Distribution Width 16.8 % (11.5-14.5); White Blood Count 5.1 K/mm3 (4.5-10.0)
[2021-03-01 06:23] LABS: Anion Gap 6 mmol/L (8-16); Blood Urea Nitrogen 22 mg/dL (7-17); Calcium 8.4 mg/dL (8.4-10.2); Carbon Dioxide 38 mmol/L (22-30); Chloride 97 mmol/L (98-107); Estimated CRCL calculation 64 ml/min; Estimated Glomerular Filt Rate 55; Glucose 95 mg/dL (65-105); Potassium 3.5 mmol/L (3.4-5.0); Sodium 141 mmol/L (137-145)
[2021-03-01] MEDS: METOPROLOL TARTRATE 50 MG TAB PO (08:47)
[2021-03-01] MEDS: lisinopriL 20 MG TABLET PO (08:47)
[2021-03-01] MEDS: ATORVASTATIN 40 MG TABLET PO (08:47)
[2021-03-01] MEDS: FUROSEMIDE INJ 40 MG/4 ML VIAL IV PUSH (08:48)
[2021-03-01] MEDS: METOPROLOL TARTRATE INJ 5 MG/5 ML VIAL IV PUSH (09:46)
[2021-03-01] MEDS: TOLNAFTATE 1% POWDER 45 GM BTL 1 APPLIC TOPICAL ×2 (09:47→21:16)
--- NOTE | 2021-03-01 12:07 | PM.PNCARD ---
Progress Note: A&P Assessment and Plan (1) Atrial fibrillation with rapid ventricular response: Code(s): I48.91 - Unspecified atrial fibrillation Status: Acute Assessment and Plan: Patient remains in atrial fibrillation with RVR with heart rates in 110s to 120s. Diltiazem was discontinued last night due to bradycardia with heart rates in 40s. Currently, patient's heart rates are in 110s to 120s. Bedside echocardiogram on my personal evaluation shows variable LV contractility with calculated EF about 35%. continue lisinopril at current dose for now. Increase metoprolol tartrate to 75 mg p.o. b.i.d. On Xarelto -patient likely has OMEGA, which may need to be addressed as well. (2) Acute exacerbation of congestive heart failure: Code(s): I50.9 - Heart failure, unspecified Status: Acute Assessment and Plan: Continue diuresis with furosemide (3) Electrolyte abnormality: Code(s): E87.8 - Other disorders of electrolyte and fluid balance, not elsewhere classified Status: Acute Assessment and Plan: Potassium chloride 40 mg p.o. x1. (4) Hypertension: Code(s): I10 - Essential (primary) hypertension Status: Acute Assessment and Plan: Reasonably controlled Subjective Date/time seen: 03/01/21 12:07 Interval history: Follow-up visit in this 60-year-old lady with: Chronic hypertension and chronic atrial fibrillation of both under poor control on admission because she was noncompliant with all of her medication. Morbid obesity Date of service 03/01/2021: Patient offers no cardiovascular complaints. she is happy that the Muro catheter is out. No chest pain or shortness of breath. Heart rate was elevated though overnight Review of Systems Review of Systems: All systems reviewed & are unremarkable except as noted in HPI and below ROS unobtainable: Yes unobtainable due to mental status Constitutional: Constitutional: Denies excessive sweating, Denies headache(s) and Reports weakness Eyes: Eyes: Denies blurry vision ENT: Reports Normal hearing present, Denies headache(s) and Denies neck pain Cardiovascular: Cardiovascular: Denies chest pain and Denies dyspnea Respiratory: Respiratory: Denies dyspnea Gastrointestinal: Gastrointestinal: Denies abdominal pain Genitourinary: Genitourinary: Denies hematuria Musculoskeletal: Musculoskeletal: Denies neck pain Integumentary/Breasts: Skin/Breast: Denies dry skin Neurologic: Reports Normal hearing present, Denies headache(s) and Reports weakness Psychiatric: Psychiatric: Denies anxiety Endocrine: Endocrine: Denies excessive sweating Hematologic/Lymphatic: Hematologic/Lymphatic: Denies easy bleeding Allergic/Immunologic: Allergic/Immunologic: Denies GI upset with certain foods Exam Narrative: Exam Narrative: PHYSICAL EXAMINATION: GENERAL: Morbidly obese, somewhat somnolent MENTAL STATUS: Flat affect EYES: Extraocular movements intact, no pallor EARS: External ears appear normal, hearing grossly normal NOSE: Normal and patent, no discharge MOUTH: Mucous membranes moist, tongue normal NECK: Thick neck CHEST: Decreased effort, decreased breath sounds HEART: Tachycardic, irregularly irregular rhythm ABDOMEN: Soft, nontender NEUROLOGICAL: Somnolent, speech coherent MUSCULOSKELETAL: No major deformity, no amputation EXTREMITIES: Trivial pedal edema, no clubbing, no cyanosis SKIN: no rash on the exposed area, no cyanosis PSYCHIATRIC: Flat affect Objective Data Vital Signs Vital Signs: Vital Signs - 24 hr 02/28/21 14:00 02/28/21 16:00 02/28/21 16:17 Temperature 36.6 C Pulse Rate 109 H 100 Respiratory Rate 20 Blood Pressure 144/86 H Pulse Oximetry 94 95 02/28/21 20:08 02/28/21 20:15 02/28/21 22:00 Temperature 36.4 C Pulse Rate 120 H 121 H 115 H Respiratory Rate 18 Blood Pressure 135/92 H Pulse Oximetry 96 03/01/21 00:00 03/01/21 04:00 02/07
[2021-03-01] MEDS: POTASSIUM CHLORIDE 20 MEQ TABLET 40 MEQ PO (14:21)
--- NOTE | 2021-03-01 15:00 | PM.IMPN ---
Progress Note: A&P Additional Plan 02/25/2021 She is currently on a Cardizem drip without much improvement in her rate. I have started her on metoprolol q.12 hours in the hopes that this will provide better rate control. She has been started on Lovenox 1 milligram/kilogram b.i.d. and she will need to switch to an oral anticoagulant tomorrow. She does have enlarged cardiac silhouette on imaging and an echocardiogram has been ordered for further evaluation. I will also check a TSH as well as apnea link. 02/25/21 16:16 patient is 60-year-old female with history of atrial fib, CHF, presented emergency depart with shortness of breath and patient was found and atrial fibrillation with RVR patient was started on diltiazem drip from urgency depart however patient had bradycardia and the drip was stopped, however this morning patient was seen by Cardiology and her heart rate was 110-120 and patient will started on metoprolol to control the rate, patient had a cardiac echo it showed ejection fraction of 35%, currently patient started heparin, unfortunately patient is very noncompliant with her medication and follow-up, will continue present managed and further recommendation to follow. 02/26/2021 Cardiology following has titrated her medication with improved heart rate control Transitioned back to OAC today Will monitor overnight and reassess medications tomorrow Patient is -4 L creatinine and BUN remain stable Patient continues with Muro new order placed Strict Is and Os Fluid restriction Diuretics 02/27/2021 Patient found to have reduced ejection fraction of 35% on echocardiogram She continues with diuresis Potassium magnesium repleted per cardiology Atrial fibrillation is uncontrolled patient intolerant to diltiazem will be maintained on metoprolol better rate control Anticipate congestive heart failure to improve as atrial fibrillation improves Patient poorly compliant will need very close follow-up outpatient 02/28/21 Patient successfully diuresed Muro catheter discontinued The patient needs to work on weight loss and getting up and about however she is very sedentary and spends a lot of time in a wheelchair. PT/OT consulted to help assess safe discharge planning; needs Continue current care 03/01/2021 Heart rate was elevated overnight, metoprolol IV push given, cardiology has adjusted metoprolol dosing recommendations appreciated Continue to work with PT OT Patient euvolemic at this time Anticipate discharge home tomorrow with home health care Subjective Date/time seen: 03/01/21 15:00 Patient doing okay she has no complaints during my interview. She refuses to go to an SNF for ongoing care. We have discussed at length and contacted her daughter with whom she lives to assure that she will have a safe discharge plan. Her daughter agrees to bring her home and understands that she is not mobile at this time. Daughter further elaborates that her mother is at baseline very sedentary and that it takes multiple family members to move her from the bed to commode. Exam Narrative: Exam Narrative: GEN: NAD, AAOx3, minimally cooperative HEENT: NCAT, MMM, EOMI Neck: no JVD Heart: IRR tachy Ext: moves all, no cyanosis, no clubbing, no pitting edema Psych: mood reduced and affect congruent Objective Data Vital Signs Vital Signs: Vital Signs - 24 hr 02/28/21 16:00 02/28/21 16:17 02/28/21 20:08 Temperature Pulse Rate 100 120 H Respiratory Rate Blood Pressure Pulse Oximetry 95 02/28/21 20:15 02/28/21 22:00 03/01/21 00:00 Temperature 97.6 F Pulse Rate 121 H 115 H 102 H Respiratory Rate 18 Blood Pressure 135/92 H Pulse Oximetry 96 03/01/21 04:00 03/01/21 06:00 03/01/21 08:00 Temperature 98.5 F Pulse Rate 112 H 102 H 127 H Respiratory Rate 18 Blood Pressure 137/92 H Pulse Oximetry 99 03/01/21 08:47 03/01/21 09:46 03/01/21 12:00 Temperature Pulse Rate 128 H 148 H 109 H Respiratory Rate
[2021-03-01 16:10] LABS: Magnesium 1.7 mg/dL (1.6-2.3)
[2021-03-01] MEDS: RIVAROXABAN 20 MG TABLET PO (17:38)
--- NOTE | 2021-03-01 19:05 | ECG_ITS ---
Measurements Intervals [place] Rate: 121 P: LA: 0 QRS: 19 QRSD: 86 T: 0 QT: 303 QTc: 431 Interpretive Statements ATRIAL FIBRILLATION WITH RAPID VENTRICULAR RESPONSE VENTRICULAR PREMATURE COMPLEX NONSPECIFIC ST & T-WAVE ABNORMALITY- DIFFUSE LEADS BASELINE ARTIFACT- I, II, III, AVR, AVL, AVF, V1 ABNORMAL ECG Electronically Signed On 03-02-2021 7:27:07 CDT by Gerson Delong D.O.
[2021-03-01] MEDS: METOPROLOL TARTRATE 25 MG TABLET 75 MG PO (20:11)
[2021-03-01 20:53] LABS: Glucose Point of Care 125 (65-105)
[2021-03-02] VITALS (16 sets, daily range): BP systolic 113–144; BP diastolic 52–77; PULSE 87–144; RESP 18–20; TEMP 36.2–37.2; O2SAT 93–98
--- NOTE | 2021-03-02 00:12 | PC.NURSE ---
This patient, Kate Perez, was received from [[id number] ] on 03/01/21 at 2035 for management of heart rate. Patient/family oriented to unit policies and routines.
--- NOTE | 2021-03-02 04:50 | PC.NURSE ---
Pt sitting on side of bed after getting up to the bsc with the walker. Difficult time getting back in bed. Pt declined help to scoot back into bed more fully and states there is nothing else she needs from me now. States she is old enough to sit on the side of the bed. HR did elevate to 170's and 180's briefly while attempting to get back in bed. Pt asymtomatic
[2021-03-02 06:26] LABS: Hematocrit 37.6 % (37.0-47.0); Hemoglobin 12.1 g/dL (12.0-15.0); Mean Corpuscular HGB Conc 32.2 g/dl (32-36); Mean Corpuscular Hemoglobin 31.8 pg (26-34); Mean Corpuscular Volume 98.9 fl (80-100); Mean Platelet Volume 9.7 fl (7.4-10.4); Platelet Count Result 219 k/mm3 (150-375); Red Cell Distribution Width 16.5 % (11.5-14.5); White Blood Count 4.8 K/mm3 (4.5-10.0)
[2021-03-02 06:41] LABS: Anion Gap 4 mmol/L (8-16); Blood Urea Nitrogen 21 mg/dL (7-17); Calcium 8.4 mg/dL (8.4-10.2); Carbon Dioxide 37 mmol/L (22-30); Chloride 100 mmol/L (98-107); Estimated CRCL calculation 76 ml/min; Estimated Glomerular Filt Rate > 60; Glucose 96 mg/dL (65-105); Potassium 3.7 mmol/L (3.4-5.0); Sodium 141 mmol/L (137-145)
[2021-03-02] MEDS: METOPROLOL TARTRATE 25 MG TABLET 75 MG PO ×2 (09:25→20:20)
[2021-03-02] MEDS: lisinopriL 20 MG TABLET PO (09:25)
[2021-03-02] MEDS: ATORVASTATIN 40 MG TABLET PO (09:25)
--- NOTE | 2021-03-02 09:44 | PM.PNCARD ---
Progress Note: A&P Assessment and Plan (1) Atrial fibrillation with rapid ventricular response: Code(s): I48.91 - Unspecified atrial fibrillation Status: Acute Assessment and Plan: Patient remains in atrial fibrillation with RVR with heart rates in 110s to 120s. Diltiazem was discontinued last night due to bradycardia with heart rates in 40s. Currently, patient's heart rates are in 110s to 120s. Bedside echocardiogram on my personal evaluation shows variable LV contractility with calculated EF about 35%. continue lisinopril at current dose for now. Continue metoprolol tartrate. Will give her a dose of IV amiodarone 150 mg IV x1 to assist with rate control. On Xarelto -patient likely has OMEGA, which may need to be addressed as well. (2) Acute exacerbation of congestive heart failure: Code(s): I50.9 - Heart failure, unspecified Status: Acute Assessment and Plan: Furosemide 20 mg daily to be started (3) Electrolyte abnormality: Code(s): E87.8 - Other disorders of electrolyte and fluid balance, not elsewhere classified Status: Acute Assessment and Plan: Potassium chloride 40 mg p.o. x1. (4) Hypertension: Code(s): I10 - Essential (primary) hypertension Status: Acute Assessment and Plan: Reasonably controlled Subjective Date/time seen: 03/02/21 09:44 Interval history: Follow-up visit in this 60-year-old lady with: Chronic hypertension and chronic atrial fibrillation of both under poor control on admission because she was noncompliant with all of her medication. Morbid obesity Date of service 03/02/2021: Was transferred back down to IMU last night because of atrial fibrillation with rapid ventricular response. Heart rate remains high. No chest pain. She is frustrated and wants to go home Review of Systems Review of Systems: All systems reviewed & are unremarkable except as noted in HPI and below ROS unobtainable: Yes unobtainable due to mental status Constitutional: Constitutional: Denies excessive sweating, Denies headache(s) and Reports weakness Eyes: Eyes: Denies blurry vision ENT: Reports Normal hearing present, Denies headache(s) and Denies neck pain Cardiovascular: Cardiovascular: Denies chest pain and Denies dyspnea Respiratory: Respiratory: Denies dyspnea Gastrointestinal: Gastrointestinal: Denies abdominal pain Genitourinary: Genitourinary: Denies hematuria Musculoskeletal: Musculoskeletal: Denies neck pain Integumentary/Breasts: Skin/Breast: Denies dry skin Neurologic: Reports Normal hearing present, Denies headache(s) and Reports weakness Psychiatric: Psychiatric: Denies anxiety Endocrine: Endocrine: Denies excessive sweating Hematologic/Lymphatic: Hematologic/Lymphatic: Denies easy bleeding Allergic/Immunologic: Allergic/Immunologic: Denies GI upset with certain foods Exam Narrative: Exam Narrative: PHYSICAL EXAMINATION: GENERAL: Morbidly obese, somewhat somnolent MENTAL STATUS: Flat affect EYES: Extraocular movements intact, no pallor EARS: External ears appear normal, hearing grossly normal NOSE: Normal and patent, no discharge MOUTH: Mucous membranes moist, tongue normal NECK: Thick neck CHEST: Decreased effort, decreased breath sounds HEART: Tachycardic, irregularly irregular rhythm ABDOMEN: Soft, nontender NEUROLOGICAL: Somnolent, speech coherent MUSCULOSKELETAL: No major deformity, no amputation EXTREMITIES: Trivial pedal edema, no clubbing, no cyanosis SKIN: no rash on the exposed area, no cyanosis PSYCHIATRIC: Flat affect Objective Data Vital Signs Vital Signs: Vital Signs - 24 hr 03/01/21 09:46 03/01/21 12:00 03/01/21 14:00 Temperature 36.2 C L Pulse Rate 148 H 109 H 113 H Respiratory Rate 18 Blood Pressure 118/90 Pulse Oximetry 98 03/01/21 16:00 03/01/21 19:28 03/01/21 20:00 Temperature Pulse Rate 103 H 128 H Respiratory Rate Blood Pressure
--- NOTE | 2021-03-02 09:56 | PCOTNOTE ---
Attempted to see patient this am however patient refused. Initially patient agreed to therapy, however upon removing covers, patient stated, Is there some reason why you want me to be cold. Explained to patient the need to remove covers in order to move for activity. Pt replied, Well then I'll be cold. Can't you feel that air flowing? Offered patient to partial cover during activity, however patient refused stating, No, then I'll be too cold. I just want to try to be able to eat today. That's all I wanna do.
[2021-03-02] MEDS: POTASSIUM CHLORIDE 20 MEQ TABLET 40 MEQ PO (10:37)
[2021-03-02] MEDS: FUROSEMIDE 20 MG TABLET PO (10:37)
[2021-03-02] MEDS: AMIODARONE 150 MG/D5W 100 ML 150 MG/100 ML BAG 600 MG IV CONT (11:36)
--- NOTE | 2021-03-02 13:39 | PCOTNOTE ---
Patient from 3rd med to room 200. Per physician and RN, continue therapy services per plan of care as patient went to IMU for closer monitoring of heart rate.
--- NOTE | 2021-03-02 16:54 | PM.IMPN ---
Progress Note: A&P Assessment and Plan (1) Atrial fibrillation with rapid ventricular response: Code(s): I48.91 - Unspecified atrial fibrillation Status: Acute (2) Acute exacerbation of congestive heart failure: Code(s): I50.9 - Heart failure, unspecified Status: Acute (3) Pneumonia: Qualifiers: Laterality: bilateral Lung location: lower lobe of lung Pneumonia type: due to unspecified organism Qualified Code(s): J18.9 - Pneumonia, unspecified organism Code(s): J18.9 - Pneumonia, unspecified organism Status: Acute (4) Cardiomyopathy: Code(s): I42.9 - Cardiomyopathy, unspecified Status: Acute (5) Morbid obesity: Code(s): E66.01 - Morbid (severe) obesity due to excess calories Status: Acute (6) Hypertension: Code(s): I10 - Essential (primary) hypertension Status: Acute (7) Electrolyte abnormality: Code(s): E87.8 - Other disorders of electrolyte and fluid balance, not elsewhere classified Status: Acute Additional Plan 02/25/2021 She is currently on a Cardizem drip without much improvement in her rate. I have started her on metoprolol q.12 hours in the hopes that this will provide better rate control. She has been started on Lovenox 1 milligram/kilogram b.i.d. and she will need to switch to an oral anticoagulant tomorrow. She does have enlarged cardiac silhouette on imaging and an echocardiogram has been ordered for further evaluation. I will also check a TSH as well as apnea link. 02/25/21 16:16 patient is 60-year-old female with history of atrial fib, CHF, presented emergency depart with shortness of breath and patient was found and atrial fibrillation with RVR patient was started on diltiazem drip from urgency depart however patient had bradycardia and the drip was stopped, however this morning patient was seen by Cardiology and her heart rate was 110-120 and patient will started on metoprolol to control the rate, patient had a cardiac echo it showed ejection fraction of 35%, currently patient started heparin, unfortunately patient is very noncompliant with her medication and follow-up, will continue present managed and further recommendation to follow. 02/26/2021 Cardiology following has titrated her medication with improved heart rate control Transitioned back to OAC today Will monitor overnight and reassess medications tomorrow Patient is -4 L creatinine and BUN remain stable Patient continues with Muro new order placed Strict Is and Os Fluid restriction Diuretics 02/27/2021 Patient found to have reduced ejection fraction of 35% on echocardiogram She continues with diuresis Potassium magnesium repleted per cardiology Atrial fibrillation is uncontrolled patient intolerant to diltiazem will be maintained on metoprolol better rate control Anticipate congestive heart failure to improve as atrial fibrillation improves Patient poorly compliant will need very close follow-up outpatient 02/28/21 Patient successfully diuresed Muro catheter discontinued The patient needs to work on weight loss and getting up and about however she is very sedentary and spends a lot of time in a wheelchair. PT/OT consulted to help assess safe discharge planning; needs Continue current care 03/01/2021 Heart rate was elevated overnight, metoprolol IV push given, cardiology has adjusted metoprolol dosing recommendations appreciated Continue to work with PT OT Patient euvolemic at this time Anticipate discharge home tomorrow with home health care 03/02/21 still in Afib RVR transferred to IMU cardio following IV push of amiodarone cont BB cont PT/OT cont home lasix dc planning when cleared by cardio Time Spent With Patient Time with patient: 25 - 35 minutes Subjective Date/time seen: 03/02/21 16:54 poor cognitive understanding, upset that we are monitoring her heart. wants to go home. pt reassured, soon. Exam Narrative: Exam Narrative: GEN: NA
[2021-03-02] MEDS: RIVAROXABAN 20 MG TABLET PO (17:21)
[2021-03-02] MEDS: TOLNAFTATE 1% POWDER 45 GM BTL 1 APPLIC TOPICAL (20:22)
[2021-03-03] VITALS (16 sets, daily range): BP systolic 91–139; BP diastolic 56–84; PULSE 91–120; RESP 18–20; TEMP 35.9–36.4; O2SAT 98–99
[2021-03-03 05:37] LABS: Hematocrit 36.9 % (37.0-47.0); Hemoglobin 11.7 g/dL (12.0-15.0); Mean Corpuscular HGB Conc 31.7 g/dl (32-36); Mean Corpuscular Hemoglobin 30.8 pg (26-34); Mean Corpuscular Volume 97.1 fl (80-100); Mean Platelet Volume 9.8 fl (7.4-10.4); Platelet Count Result 234 k/mm3 (150-375); Red Cell Distribution Width 16.7 % (11.5-14.5); White Blood Count 6.1 K/mm3 (4.5-10.0)
[2021-03-03 05:51] LABS: Anion Gap 2 mmol/L (8-16); Blood Urea Nitrogen 19 mg/dL (7-17); Carbon Dioxide 36 mmol/L (22-30); Chloride 102 mmol/L (98-107); Estimated CRCL calculation 62 ml/min; Estimated Glomerular Filt Rate 55; Glucose 93 mg/dL (65-105); Potassium 4.1 mmol/L (3.4-5.0); Sodium 140 mmol/L (137-145)
[2021-03-03] MEDS: FUROSEMIDE 20 MG TABLET PO (08:38)
[2021-03-03] MEDS: METOPROLOL TARTRATE 25 MG TABLET 75 MG PO (08:38)
[2021-03-03] MEDS: lisinopriL 20 MG TABLET PO (08:38)
[2021-03-03] MEDS: ATORVASTATIN 40 MG TABLET PO (08:38)
[2021-03-03] MEDS: TOLNAFTATE 1% POWDER 45 GM BTL 1 APPLIC TOPICAL ×2 (10:15→20:35)
[2021-03-03] MEDS: METOPROLOL TARTRATE 50 MG TAB PO (10:23)
--- NOTE | 2021-03-03 11:41 | PCDIET ---
Weekly nutritional screen. Patient is tolerating current diet with adequate intake. No weight loss reported prior to admission. Weight loss during admission appears to be related to diuresis. Patient consuming 100% of meals. No nutritional needs at this time.
--- NOTE | 2021-03-03 14:00 | PM.IMPN ---
Progress Note: A&P Assessment and Plan (1) Atrial fibrillation with rapid ventricular response: Code(s): I48.91 - Unspecified atrial fibrillation Status: Acute (2) Acute exacerbation of congestive heart failure: Code(s): I50.9 - Heart failure, unspecified Status: Acute (3) Pneumonia: Qualifiers: Laterality: bilateral Lung location: lower lobe of lung Pneumonia type: due to unspecified organism Qualified Code(s): J18.9 - Pneumonia, unspecified organism Code(s): J18.9 - Pneumonia, unspecified organism Status: Acute (4) Cardiomyopathy: Code(s): I42.9 - Cardiomyopathy, unspecified Status: Acute (5) Morbid obesity: Code(s): E66.01 - Morbid (severe) obesity due to excess calories Status: Acute Assessment and Plan: 02/25/2021 She is currently on a Cardizem drip without much improvement in her rate. I have started her on metoprolol q.12 hours in the hopes that this will provide better rate control. She has been started on Lovenox 1 milligram/kilogram b.i.d. and she will need to switch to an oral anticoagulant tomorrow. She does have enlarged cardiac silhouette on imaging and an echocardiogram has been ordered for further evaluation. I will also check a TSH as well as apnea link. 02/25/21 16:16 patient is 60-year-old female with history of atrial fib, CHF, presented emergency depart with shortness of breath and patient was found and atrial fibrillation with RVR patient was started on diltiazem drip from urgency depart however patient had bradycardia and the drip was stopped, however this morning patient was seen by Cardiology and her heart rate was 110-120 and patient will started on metoprolol to control the rate, patient had a cardiac echo it showed ejection fraction of 35%, currently patient started heparin, unfortunately patient is very noncompliant with her medication and follow-up, will continue present managed and further recommendation to follow. 02/26/2021 Cardiology following has titrated her medication with improved heart rate control Transitioned back to OAC today Will monitor overnight and reassess medications tomorrow Patient is -4 L creatinine and BUN remain stable Patient continues with Muro new order placed Strict Is and Os Fluid restriction Diuretics 02/27/2021 Patient found to have reduced ejection fraction of 35% on echocardiogram She continues with diuresis Potassium magnesium repleted per cardiology Atrial fibrillation is uncontrolled patient intolerant to diltiazem will be maintained on metoprolol better rate control Anticipate congestive heart failure to improve as atrial fibrillation improves Patient poorly compliant will need very close follow-up outpatient 02/28/21 Patient successfully diuresed Muro catheter discontinued The patient needs to work on weight loss and getting up and about however she is very sedentary and spends a lot of time in a wheelchair. PT/OT consulted to help assess safe discharge planning; needs Continue current care (6) Hypertension: Code(s): I10 - Essential (primary) hypertension Status: Acute Assessment and Plan: 02/25/2021 Blood pressures have been running high. As above she has been started on metoprolol and I will add lisinopril as well. Titrate doses as required. 02/26/2021 Blood pressure improved continue current care (7) Electrolyte abnormality: Code(s): E87.8 - Other disorders of electrolyte and fluid balance, not elsewhere classified Status: Acute Additional Plan 02/25/2021 She is currently on a Cardizem drip without much improvement in her rate. I have started her on metoprolol q.12 hours in the hopes that this will provide better rate control. She has been started on Lovenox 1 milligram/kilogram b.i.d. and she will need to switch to an oral anticoagulant tomorrow. She does have enlarged cardiac silhouette on imaging and an echocardiogram has been ordered for f
--- NOTE | 2021-03-03 14:42 | PM.PNCARD ---
Progress Note: A&P Assessment and Plan (1) Atrial fibrillation with rapid ventricular response: Code(s): I48.91 - Unspecified atrial fibrillation Status: Acute Assessment and Plan: Patient remains in atrial fibrillation with RVR with heart rates in 110s to 120s. Given 1 time amiodarone last night for persistent tachycardia. Heart rate a little better this morning. Increase metoprolol tartrate to 125 mg twice daily, give additional 50 mg this morning for HR control. Monitor heart rate control at this time. Compliance remains a great concern. Explained in detail risk for stroke, worsening heart failure, decline in heart function with uncontrolled atrial fibrillation the need to remain on medications and continue follow-up. Patient does not seem to believe she has any cardiac problems despite extensive counseling and explanation. EF about 35-40%. continue lisinopril at current dose for now. On Xarelto -patient likely has OMEGA, which may need to be addressed as well. (2) Acute exacerbation of congestive heart failure: Code(s): I50.9 - Heart failure, unspecified Status: Acute Assessment and Plan: Furosemide 20 mg daily. Appears reasonably compensated at this time. (3) Electrolyte abnormality: Code(s): E87.8 - Other disorders of electrolyte and fluid balance, not elsewhere classified Status: Acute Assessment and Plan: Continue to monitor closely. (4) Hypertension: Code(s): I10 - Essential (primary) hypertension Status: Acute Assessment and Plan: Reasonably controlled, continue to monitor BP closely. Subjective Date/time seen: Date of service: 03/03/21 14:42 Interval history: Follow-up visit in this 60-year-old lady with: Chronic hypertension and chronic atrial fibrillation of both under poor control on admission because she was noncompliant with all of her medication. Morbid obesity Patient denies significant shortness of breath, palpitations or chest pain. Did not appear to understand change in her cardiac status over years as she does not feel palpitations or chest pain. She still does not seem to appreciate she has any cardiac issues and she kept questioning if she has the same heart back in 1960 and I never had any problems why would I now. I explained as we age our bodies change and we must take of them or any issues identified to prevent new or more serious complications. She would indicate understanding but then ask the same question again. Review of Systems Review of Systems: All systems reviewed & are unremarkable except as noted in HPI and below ROS unobtainable: Yes unobtainable due to mental status Constitutional: Constitutional: Reports as per HPI, Denies excessive sweating, Denies headache(s) and Reports weakness Eyes: Eyes: Reports as per HPI and Denies blurry vision ENT: Reports as per HPI, Reports Normal hearing present, Denies headache(s) and Denies neck pain Cardiovascular: Cardiovascular: Reports as per HPI, Denies chest pain, Denies leg edema, Denies palpitations and Denies dyspnea Respiratory: Respiratory: Reports as per HPI, Reports cough, Denies dyspnea and Reports dyspnea on exertion Gastrointestinal: Gastrointestinal: Reports as per HPI and Denies abdominal pain Genitourinary: Genitourinary: Reports as per HPI and Denies hematuria Musculoskeletal: Musculoskeletal: Reports as per HPI and Denies neck pain Integumentary/Breasts: Skin/Breast: Reports as per HPI and Denies dry skin Neurologic: Reports Normal hearing present, Denies headache(s) and Reports weakness Psychiatric: Psychiatric: Reports as per HPI and Denies anxiety Endocrine: Endocrine: Reports as per HPI and Denies excessive sweating Hematologic/Lymphatic: Hematologic/Lymphatic: Reports as per HPI and Denies easy bleeding Allergic/Immunologic: Allergic/Immunologic: Reports as per HPI and Denies GI upset with certain foods Exam Narrative: Exam Narr
[2021-03-03] MEDS: RIVAROXABAN 20 MG TABLET PO (18:17)
[2021-03-03] MEDS: METOPROLOL TARTRATE 25 MG TABLET PO (20:33)
[2021-03-03] MEDS: METOPROLOL TARTRATE 50 MG TAB 100 MG PO (20:34)
[2021-03-04] VITALS (18 sets, daily range): BP systolic 110–131; BP diastolic 65–88; PULSE 90–124; RESP 16–20; TEMP 36.6–36.9; O2SAT 94–100
[2021-03-04 05:00] LABS: Hematocrit 38.3 % (37.0-47.0); Hemoglobin 11.8 g/dL (12.0-15.0); Mean Corpuscular HGB Conc 30.8 g/dl (32-36); Mean Corpuscular Volume 100.5 fl (80-100); Mean Platelet Volume 10.3 fl (7.4-10.4); Platelet Count Result 222 k/mm3 (150-375); Red Blood Count 3.81 M/mm3 (4.2-5.4); Red Cell Distribution Width 16.6 % (11.5-14.5); White Blood Count 6.1 K/mm3 (4.5-10.0)
[2021-03-04 05:26] LABS: Anion Gap 2 mmol/L (8-16); Blood Urea Nitrogen 20 mg/dL (7-17); Calcium 8.1 mg/dL (8.4-10.2); Carbon Dioxide 37 mmol/L (22-30); Chloride 101 mmol/L (98-107); Estimated CRCL calculation 58 ml/min; Estimated Glomerular Filt Rate 50; Glucose 99 mg/dL (65-105); Sodium 140 mmol/L (137-145)
[2021-03-04] MEDS: TOLNAFTATE 1% POWDER 45 GM BTL 1 APPLIC TOPICAL (08:56)
[2021-03-04] MEDS: ATORVASTATIN 40 MG TABLET PO (08:56)
[2021-03-04] MEDS: METOPROLOL TARTRATE 50 MG TAB 100 MG PO (08:56)
[2021-03-04] MEDS: lisinopriL 20 MG TABLET PO (08:56)
[2021-03-04] MEDS: FUROSEMIDE 20 MG TABLET PO (08:57)
[2021-03-04] MEDS: METOPROLOL TARTRATE 25 MG TABLET PO ×2 (08:57→11:41)
--- NOTE | 2021-03-04 14:41 | PM.PNCARD ---
Progress Note: A&P Assessment and Plan (1) Atrial fibrillation with rapid ventricular response: Code(s): I48.91 - Unspecified atrial fibrillation Status: Acute Assessment and Plan: Patient remains in atrial fibrillation with RVR with heart rates in 110s to 120s at times better with increase in MEtoprolol to 125mg BID. -Will inc Metoprolol to 150mg BID. Ideally, transition to Toprol XL 150mg po daily starting tomorrow if remains in hospital overnight. -If stable today discharge home to follow up with Dr. Berrios as outpatient in 2 weeks. EF about 35-40%. -Continue Lisinopril -Continue Xarelto -PT/OT, lifestyle modifications. (2) Acute exacerbation of congestive heart failure: Code(s): I50.9 - Heart failure, unspecified Status: Acute Assessment and Plan: Furosemide 20 mg daily. Appears reasonably compensated at this time. (3) Electrolyte abnormality: Code(s): E87.8 - Other disorders of electrolyte and fluid balance, not elsewhere classified Status: Acute Assessment and Plan: Continue to monitor closely. (4) Hypertension: Code(s): I10 - Essential (primary) hypertension Status: Acute Assessment and Plan: Reasonably controlled, continue to monitor BP closely. Subjective Date/time seen: Date of service: 03/04/21 14:41 Interval history: Follow-up visit in this 60-year-old lady with: Chronic hypertension and chronic atrial fibrillation of both under poor control on admission because she was noncompliant with all of her medication. Morbid obesity Feels better overall. Heart rate better controlled yesterday afternoon. More rapid this morning 100 to 120s. Patient denies palpitation, chest pain or significant shortness of breath. No dizziness. Review of Systems Review of Systems: All systems reviewed & are unremarkable except as noted in HPI and below ROS unobtainable: Yes unobtainable due to mental status Constitutional: Constitutional: Reports as per HPI, Denies excessive sweating, Denies headache(s) and Reports weakness Eyes: Eyes: Reports as per HPI and Denies blurry vision ENT: Reports as per HPI, Reports Normal hearing present, Denies headache(s) and Denies neck pain Cardiovascular: Cardiovascular: Reports as per HPI, Denies chest pain, Denies leg edema, Denies palpitations, Denies dyspnea and Reports dyspnea on exertion Respiratory: Respiratory: Reports as per HPI, Reports cough, Denies dyspnea and Reports dyspnea on exertion Gastrointestinal: Gastrointestinal: Reports as per HPI and Denies abdominal pain Genitourinary: Genitourinary: Reports as per HPI and Denies hematuria Musculoskeletal: Musculoskeletal: Reports as per HPI and Denies neck pain Integumentary/Breasts: Skin/Breast: Reports as per HPI and Denies dry skin Neurologic: Reports Normal hearing present, Denies headache(s) and Reports weakness Psychiatric: Psychiatric: Reports as per HPI and Denies anxiety Endocrine: Endocrine: Reports as per HPI, Denies excessive sweating and Denies palpitations Hematologic/Lymphatic: Hematologic/Lymphatic: Reports as per HPI and Denies easy bleeding Allergic/Immunologic: Allergic/Immunologic: Reports as per HPI and Denies GI upset with certain foods Exam Narrative: Exam Narrative: PHYSICAL EXAMINATION: GENERAL: Morbidly obese, somewhat somnolent but answering questions, awake MENTAL STATUS: Flat affect EYES: Extraocular movements intact, no pallor EARS: External ears appear normal, hearing grossly normal NOSE: Normal and patent, no discharge MOUTH: Mucous membranes moist, tongue normal NECK: Thick neck CHEST: Decreased effort, decreased breath sounds diffusely, no rales HEART: Tachycardic, irregularly irregular rhythm s1/S2 ABDOMEN: Obese, Soft, nontender NEUROLOGICAL: Somnolent, speech coherent MUSCULOSKELETAL: No major deformity, no amputation EXTREMITIES: Trivial pedal edema, no clubbing, no cyanosis SKIN:
[2021-03-04] MEDS: RIVAROXABAN 20 MG TABLET PO (18:08)
[2021-03-04] MEDS: METOPROLOL TARTRATE 50 MG TAB 150 MG PO (20:42)
[2021-03-05] VITALS (15 sets, daily range): BP systolic 91–131; BP diastolic 52–72; PULSE 95–137; RESP 18–20; TEMP 36.2–36.9; O2SAT 95–100
[2021-03-05] MEDS: lisinopriL 20 MG TABLET PO (08:50)
[2021-03-05] MEDS: FUROSEMIDE 20 MG TABLET PO (08:51)
[2021-03-05] MEDS: METOPROLOL SUCCINATE EXT REL 50 MG TABCR 150 MG PO (08:51)
[2021-03-05] MEDS: ATORVASTATIN 40 MG TABLET PO (08:52)
[2021-03-05] MEDS: METOPROLOL SUCCINATE EXT REL 50 MG TABCR PO (11:06)
[2021-03-05 11:26] LABS: Anion Gap 5 mmol/L (8-16); Blood Urea Nitrogen 21 mg/dL (7-17); Calcium 8.1 mg/dL (8.4-10.2); Carbon Dioxide 33 mmol/L (22-30); Chloride 102 mmol/L (98-107); Estimated CRCL calculation 58 ml/min; Estimated Glomerular Filt Rate 50; Glucose 136 mg/dL (65-105); Magnesium 1.8 mg/dL (1.6-2.3); Potassium 4.1 mmol/L (3.4-5.0); Sodium 140 mmol/L (137-145)
--- NOTE | 2021-03-05 12:27 | PM.PNCARD ---
Progress Note: A&P Assessment and Plan (1) Atrial fibrillation with rapid ventricular response: Code(s): I48.91 - Unspecified atrial fibrillation Status: Acute Assessment and Plan: Patient remains in atrial fibrillation with RVR with heart rates in 110s to 120s at times up to 150 with activity Despite increased to 150 mg daily. -Will inc Toprol XL To 200mg po daily. If remains significantly tachycardic as I suspect she will be may need to add Digoxin .25mg daily (initial 0.5mg load). explained at length to the patient medical therapy options, risks versus benefits. She states she was told years ago not to take amiodarone and thing she may have been on digoxin but denies any concerns. Explained the concept of utilizing as few medications as possible but we must achieve our goal is to help reduce risk in the future. -If stable today discharge home to follow up with Dr. Berrios as outpatient in 2 weeks. - Avoidance of amiodarone advised given risk for chemical cardioversion and embolic stroke on as status for intracardiac thrombus is unknown. Furthermore, patient wishes to avoid as she had been on in the past and told to not take this in the future. She is well aware of potential risks. EF about 35-40%. -Continue Lisinopril -Continue Xarelto -PT/OT, lifestyle modifications. (2) Acute exacerbation of congestive heart failure: Code(s): I50.9 - Heart failure, unspecified Status: Acute Assessment and Plan: Furosemide 20 mg daily. Appears reasonably compensated at this time. she has a bit more lower extremity edema today. May need to increase Lasix, however, given relative hypotension and need to monitor renal function will hold off on change for the time being. (3) Electrolyte abnormality: Code(s): E87.8 - Other disorders of electrolyte and fluid balance, not elsewhere classified Status: Acute Assessment and Plan: Continue to monitor closely. Monitor renal function. Creatinine 1.3 today and stable. Discussed concern with regards to digoxin and elevated levels with progressive renal insufficiency. Ideally would check a level as an outpatient once steady state. (4) Hypertension: Code(s): I10 - Essential (primary) hypertension Status: Acute Assessment and Plan: Reasonably controlled, continue to monitor BP closely. Subjective Date/time seen: Date of service: 03/05/21 12:27 Interval history: Follow-up visit in this 60-year-old lady with: Chronic hypertension and chronic atrial fibrillation of both under poor control on admission because she was noncompliant with all of her medication. Morbid obesity Feels Okay overall, tired today. Heart rate better controlled yesterday afternoon. More rapid this morning 110's-120's at rest up 150 with activity. Patient denies palpitation, chest pain or significant shortness of breath. No dizziness. Once again, spent a great deal of time explaining importance of managing her medical conditions particularly given her LV dysfunction, atrial fibrillation with fast heart rate and convincing her that even if she feels well she still requires medical therapy for her heart and that she has not been atrial fibrillation with a fast HR her whole life as contends. Review of Systems Review of Systems: All systems reviewed & are unremarkable except as noted in HPI and below Constitutional: Constitutional: Reports as per HPI, Denies excessive sweating, Reports fatigue, Denies headache(s) and Reports weakness Eyes: Eyes: Reports as per HPI and Denies blurry vision ENT: Reports as per HPI, Reports Normal hearing present, Denies headache(s) and Denies neck pain Cardiovascular: Cardiovascular: Reports as per HPI, Denies chest pain, Denies leg edema, Denies palpitations, Denies dyspnea and Reports dyspnea on exertion Respiratory: Respiratory: Reports as per HPI, Denies cough, Denies dyspnea and Reports dyspnea on exertion Gastroint
[2021-03-05] MEDS: DIGOXIN 250 MCG TABLET 500 MCG PO (13:31)
--- NOTE | 2021-03-05 14:10 | PCOTNOTE ---
Attempted to see patient this pm, however patient refused. Pt was sleeping upon entering and refused stating, My medicine or something has me real sleepy. Pt reported already completing ADLs and declined exercises stating, I already did that.
[2021-03-05] MEDS: RIVAROXABAN 20 MG TABLET PO (17:17)
[2021-03-06] VITALS (16 sets, daily range): BP systolic 95–132; BP diastolic 47–84; PULSE 89–115; RESP 14–18; TEMP 36.6–37.2; O2SAT 95–100
[2021-03-06] MEDS: lisinopriL 10 MG TABLET PO (08:19)
[2021-03-06] MEDS: ATORVASTATIN 40 MG TABLET PO (08:19)
[2021-03-06] MEDS: METOPROLOL SUCCINATE EXT REL 100 MG TABCR 200 MG PO (08:19)
[2021-03-06] MEDS: FUROSEMIDE 20 MG TABLET PO (08:21)
[2021-03-06] MEDS: DIGOXIN 250 MCG TABLET PO (08:21)
--- NOTE | 2021-03-06 15:14 | PM.PNCARD ---
Progress Note: A&P Assessment and Plan (1) Atrial fibrillation with rapid ventricular response: Code(s): I48.91 - Unspecified atrial fibrillation Status: Acute Assessment and Plan: Patient remains in atrial fibrillation with RVR with heart rates in 110s to 120s at times up to 150 with activity Despite increased to 150 mg daily. -Will inc Toprol XL To 200mg po daily. -Continue digoxin 0.25 mg daily. Check digoxin level in 1 week as outpatient. Heart rate not ideal but adequately controlled at rest a patient time medical therapy. Discussed importance of compliance, follow-up and the dangers associated with digoxin toxicity in associated with significant electrolyte and or kidney failure. She has been stable in this regard breath this hospitalization and is reasonable given limited options at this time. -Follow up with her former [employer] in 2 weeks upon discharge or she decides to follow with Dr. Berrios she must inform us of her decision. _provided HR remains fairly well controlled and renal function/electrolytes stable disposition per hospitalist service. -Avoidance of amiodarone advised given risk for chemical cardioversion and embolic stroke on as status for intracardiac thrombus is unknown. Furthermore, patient wishes to avoid as she had been on in the past and told to not take this in the future. She is well aware of potential risks. EF about 35-40%. -Continue Lisinopril -Continue Xarelto, monitor for bleeding. Ambulate with caution to avoid risk for falls and injuries. -PT/OT, lifestyle modifications. (2) Acute exacerbation of congestive heart failure: Code(s): I50.9 - Heart failure, unspecified Status: Acute Assessment and Plan: Furosemide 20 mg daily. Appears reasonably compensated at this time. May need to increase Lasix, however, given relative hypotension and need to monitor renal function will hold off on change for the time being. (3) Electrolyte abnormality: Code(s): E87.8 - Other disorders of electrolyte and fluid balance, not elsewhere classified Status: Acute Assessment and Plan: Continue to monitor closely. Monitor renal function. Creatinine 1.3 today and stable. Discussed concern with regards to digoxin and elevated levels with progressive renal insufficiency. Ideally would check a level as an outpatient once steady state. CHECK BMP and Mg levels. (4) Hypertension: Code(s): I10 - Essential (primary) hypertension Status: Acute Assessment and Plan: Reasonably controlled, continue to monitor BP closely. Subjective Date/time seen: DATE OF SERVICE: 03/06/21 15:14 Interval history: Follow-up visit in this 60-year-old lady with: Chronic hypertension and chronic atrial fibrillation of both under poor control on admission because she was noncompliant with all of her medication. Morbid obesity Denies shortness of breath, chest pain or palpitations. Denies dizziness with ambulation. Heart rate more elevated yesterday afternoon, digoxin 0.5 mg x 1 yesterday added along with digoxin 0.25 mg starting this morning. At rest heart rate 90s to 110s with activity up to 130s-140s no nausea vomiting, appetite stable. Tolerating medications thus far. Review of Systems Review of Systems: All systems reviewed & are unremarkable except as noted in HPI and below Constitutional: Constitutional: Reports as per HPI, Denies excessive sweating, Denies fatigue, Denies headache(s) and Denies weakness Eyes: Eyes: Reports as per HPI and Denies blurry vision ENT: Reports as per HPI, Reports Normal hearing present, Denies headache(s) and Denies neck pain Cardiovascular: Cardiovascular: Reports as per HPI, Denies chest pain, Denies leg edema, Denies palpitations, Denies dyspnea and Reports dyspnea on exertion Respiratory: Respiratory: Reports as per HPI, Denies cough, Denies dyspnea and Reports dyspnea on exertion Gastrointestinal: Gastrointestin
[2021-03-06] MEDS: RIVAROXABAN 20 MG TABLET PO (16:33)
[2021-03-06 19:10] LABS: Potassium 4.2 mmol/L (3.4-5.0)
[2021-03-06 19:13] LABS: Anion Gap 4 mmol/L (8-16); Blood Urea Nitrogen 24 mg/dL (7-17); Carbon Dioxide 33 mmol/L (22-30); Chloride 101 mmol/L (98-107); Estimated CRCL calculation 58 ml/min; Estimated Glomerular Filt Rate 50; Glucose 108 mg/dL (65-105); Magnesium 1.8 mg/dL (1.6-2.3); Sodium 138 mmol/L (137-145)
[2021-03-06] MEDS: TOLNAFTATE 1% POWDER 45 GM BTL 1 APPLIC TOPICAL (20:15)
[2021-03-07] VITALS (17 sets, daily range): BP systolic 100–140; BP diastolic 51–104; PULSE 95–123; RESP 14–26; TEMP 36.3–37.3; O2SAT 98–100
[2021-03-07] MEDS: DIGOXIN 250 MCG TABLET PO (08:16)
[2021-03-07] MEDS: FUROSEMIDE 20 MG TABLET PO (08:16)
[2021-03-07] MEDS: METOPROLOL SUCCINATE EXT REL 100 MG TABCR 200 MG PO (08:17)
[2021-03-07] MEDS: lisinopriL 10 MG TABLET PO (08:17)
[2021-03-07] MEDS: ATORVASTATIN 40 MG TABLET PO (08:17)
[2021-03-07] MEDS: TOLNAFTATE 1% POWDER 45 GM BTL 1 APPLIC TOPICAL ×2 (08:18→20:49)
--- NOTE | 2021-03-07 11:45 | PM.PNCARD ---
Progress Note: A&P Assessment and Plan (1) Atrial fibrillation with rapid ventricular response: Code(s): I48.91 - Unspecified atrial fibrillation Status: Acute Assessment and Plan: Patient remains in atrial fibrillation with RVR with heart rates in 110s to 130's this AM and up to the upper 180's with activity this morning on Toprol XL 200mg daily and Digoxin .25mg daily. -patient refuses any additional medications for heart rate control. I explained as she has read declined amiodarone addition of diltiazem for additional heart rate control necessary. I explained the increased risk for decompensated heart failure, potential for worsening heart function due to uncontrolled heart rate which can also increase risk of . Explained the risk of stroke, serious complications from noncompliance with medications, recommendations and follow-up including . Patient is clearly in denial with regards to her general health indicating she is taking very good care of herself with past 60 years and has no heart or kidney problems. She also states that if it's her time it is her time wherever and whenever that may be. She states she wants to go home. She became upset trying to explain the importance heart rate control and the medications and accused me of just wanting to add medications for the sake of adding medications. I reassured her although recommendations in care are as an advocate with her best interest in mind. She did not understand or accept this refusing any changes in medications. She eventually agreed but was slow to verbalize she would follow-up with Dr. Berrios as scheduled as an outpatient. - Check digoxin level and BMP, Mg in 1 week as outpatient. Heart rate remains suboptimally controlled. CHRISTINE/CV not appropriate given chronic nature of her A.Fib, severe left atrial enlargement, and moderate to severe MR as CV anticipated to unfruitful and/or shortlived even if successful. Discussed importance of compliance, follow-up and the dangers associated with digoxin toxicity in associated with significant electrolyte and or kidney failure. -Continue Xarelto, monitor for bleeding. Ambulate with caution to avoid risk for falls and injuries. -Pt refuses to consider Amiodarone as well. Given h/o noncompliance Sotalol is also not a great option. EF about 35-40%. -Continue Lisinopril 10mg daily. -Follow up with Dr. Berrios March 25, 2021 at [place] office at 1145 AM. Arrive 20 minutes early. -Disposition per Hospitalist Service as pt id refusing further management or medication adjustment is demanding to be discharged. (2) Acute exacerbation of congestive heart failure: Code(s): I50.9 - Heart failure, unspecified Status: Acute Assessment and Plan: Furosemide 20 mg daily. Appears reasonably compensated at this time. (3) Electrolyte abnormality: Code(s): E87.8 - Other disorders of electrolyte and fluid balance, not elsewhere classified Status: Acute Assessment and Plan: Creatinine 1.3 today and stable. Discussed concern with regards to digoxin and elevated levels with progressive renal insufficiency. (4) Hypertension: Code(s): I10 - Essential (primary) hypertension Status: Acute Assessment and Plan: Reasonably controlled, continue to monitor BP closely. Subjective Date/time seen: Date of service: 03/07/21 11:45 Interval history: Follow-up visit in this 60-year-old lady with: Chronic hypertension and chronic atrial fibrillation of both under poor control on admission because she was noncompliant with all of her medication. Morbid obesity Patient denies shortness of breath or palpitation. Patient wants to go home. Heart rate resting today 100 to 130s and with activity up to the upper 180s in atrial fibrillation. She denies dizziness. Nurse reports she is not following recommendations with ambulation and precautions. Discussed need to add heidi
--- NOTE | 2021-03-07 13:03 | PM.DS ---
DS: Admitting Diagnosis Admitting Diagnosis Admitting Diagnosis: Shortness of breath DS: Discharge Diagnosis Discharge Diagnosis (1) Atrial fibrillation with rapid ventricular response: Code(s): I48.91 - Unspecified atrial fibrillation Status: Acute (2) Acute exacerbation of congestive heart failure: Code(s): I50.9 - Heart failure, unspecified Status: Acute (3) Pneumonia: Qualifiers: Laterality: bilateral Lung location: lower lobe of lung Pneumonia type: due to unspecified organism Qualified Code(s): J18.9 - Pneumonia, unspecified organism Code(s): J18.9 - Pneumonia, unspecified organism Status: Acute (4) Cardiomyopathy: Code(s): I42.9 - Cardiomyopathy, unspecified Status: Acute (5) Morbid obesity: Code(s): E66.01 - Morbid (severe) obesity due to excess calories Status: Acute Assessment and Plan: 02/25/2021 She is currently on a Cardizem drip without much improvement in her rate. I have started her on metoprolol q.12 hours in the hopes that this will provide better rate control. She has been started on Lovenox 1 milligram/kilogram b.i.d. and she will need to switch to an oral anticoagulant tomorrow. She does have enlarged cardiac silhouette on imaging and an echocardiogram has been ordered for further evaluation. I will also check a TSH as well as apnea link. 02/25/21 16:16 patient is 60-year-old female with history of atrial fib, CHF, presented emergency depart with shortness of breath and patient was found and atrial fibrillation with RVR patient was started on diltiazem drip from urgency depart however patient had bradycardia and the drip was stopped, however this morning patient was seen by Cardiology and her heart rate was 110-120 and patient will started on metoprolol to control the rate, patient had a cardiac echo it showed ejection fraction of 35%, currently patient started heparin, unfortunately patient is very noncompliant with her medication and follow-up, will continue present managed and further recommendation to follow. 02/26/2021 Cardiology following has titrated her medication with improved heart rate control Transitioned back to OAC today Will monitor overnight and reassess medications tomorrow Patient is -4 L creatinine and BUN remain stable Patient continues with Muro new order placed Strict Is and Os Fluid restriction Diuretics 02/27/2021 Patient found to have reduced ejection fraction of 35% on echocardiogram She continues with diuresis Potassium magnesium repleted per cardiology Atrial fibrillation is uncontrolled patient intolerant to diltiazem will be maintained on metoprolol better rate control Anticipate congestive heart failure to improve as atrial fibrillation improves Patient poorly compliant will need very close follow-up outpatient 02/28/21 Patient successfully diuresed Muro catheter discontinued The patient needs to work on weight loss and getting up and about however she is very sedentary and spends a lot of time in a wheelchair. PT/OT consulted to help assess safe discharge planning; needs Continue current care (6) Hypertension: Code(s): I10 - Essential (primary) hypertension Status: Acute Assessment and Plan: 02/25/2021 Blood pressures have been running high. As above she has been started on metoprolol and I will add lisinopril as well. Titrate doses as required. 02/26/2021 Blood pressure improved continue current care (7) Electrolyte abnormality: Code(s): E87.8 - Other disorders of electrolyte and fluid balance, not elsewhere classified Status: Acute DS: Summary Hospital Course Reason for hospitalization: Shortness of breath Narrative: This is a 60-year-old morbidly obese female with a reported history of congestive heart failure, hypertension, and atrial fibrillation who presented to the emergency department earlier today via EMS from home for evaluation of shortn
[2021-03-07] MEDS: RIVAROXABAN 20 MG TABLET PO (17:45)
--- NOTE | 2021-03-08 03:02 | PC.NURSE ---
Telemetry removed for anticipated 1829 arrival of EMS on 03/07/21. EMS unable to pick pt up until morning, PT refuses telemetry until then.
[2021-03-08 04:00] VITALS: BP 109/73; PULSE 117; RESP 18; TEMP 36.2; O2SAT 100
--- NOTE | 2021-03-08 05:50 | PC.NURSE ---
Patient awaiting transport to home via ambulance. Updated ETAs obtained from [facility] by this RN at 2037, [id number], [id number], and [id number]. Other services contacted by this RN and were unavailable for transport.
[2021-03-08 08:00] VITALS: BP 103/58; PULSE 64; RESP 20; TEMP 36.8; O2SAT 98
[2021-03-08 08:26] VITALS: PULSE 101
[2021-03-08] MEDS: METOPROLOL SUCCINATE EXT REL 100 MG TABCR 200 MG PO (08:26)
[2021-03-08] MEDS: ATORVASTATIN 40 MG TABLET PO (08:26)
[2021-03-08] MEDS: DIGOXIN 250 MCG TABLET PO (08:26)
[2021-03-08] MEDS: FUROSEMIDE 20 MG TABLET PO (08:26)
[2021-03-08] MEDS: TOLNAFTATE 1% POWDER 45 GM BTL 1 APPLIC TOPICAL (08:26)
[2021-03-08] MEDS: lisinopriL 10 MG TABLET PO (08:26)
[2021-03-08 12:00] VITALS: BP 95/51; PULSE 104; RESP 20; TEMP 36.6; O2SAT 98
--- NOTE | 2021-03-08 14:41 | PCPTNOTE ---
Attempted to see patient for Physical Therapy this afternoon. Therapist asked patient about doing exercises and patient stated loudly, I m waiting for an ambulance! Therapist then asked patient if she wanted her to leave and patient stated loudly, I'm moving my leg! Patient moved her leg to reposition and layed in the position. Therapist then asked if she wanted to do leg exercises or for the therapist to leave and she stated loudly, I'm moving my legs! Patient was trying to turn in bed and therapist was educating her on moving the head of the bed down to help her roll. At that time the boarder steam arrived to take patient.
== END 2021-03-08 14:56 | disposition home or self-care (01) | DRG 201 ==
LOC: ANHED 07:44 → ANHIMU 09:16 → ANH3MEDSUR 02-27 10:34 → ANHIMU 03-01 20:59
PROVIDERS: Emergency Medicine; Hospitalist; Internal Medicine Cardiovascular Disease; Physician Assistant; Admitting Provider Family Medicine; Emergency Provider Emergency Medicine; Visit Provider Family Medicine
DX: I48.91 Unspecified atrial fibrillation (principal); J18.9 Pneumonia, unspecified organism; Z20.822 Contact with and (suspected) exposure to COVID-19; E66.01 Morbid (severe) obesity due to excess calories; Z68.43 Body mass index [BMI] 50.0-59.9, adult; I11.0 Hypertensive heart disease with heart failure; I50.9 Heart failure, unspecified; M19.90 Unspecified osteoarthritis, unspecified site; I42.8 Other cardiomyopathies; E87.8 Other disorders of electrolyte and fluid balance, not elsewhere classified; Z86.711 Personal history of pulmonary embolism; Z86.718 Personal history of other venous thrombosis and embolism
CPT/HCPCS: 36415; 36600; 71045; 80048; 80053; 80061; 82805; 82948; 83036; 83605; 83735; 83880; 84443; 84484; 85025; 85027; 85610; 85730; 87040; 93005; 93306; 94762; 96365; 96366; 96367; 96375; 97110; 97116; 97161; 97165; 97530; 97535; 99285; A9270; C9803; J0282; J0456; J0696; J1650; J1940; J3475; J7040; Q9957; U0003; U0005

== ENCOUNTER 2021-11-24 11:10 | Emergency (ER) | payer MEDICAID, SELFPAY ==
[2021-11-24 12:03] VITALS: BP 118/45; PULSE 88; RESP 18; TEMP 36.8; O2SAT 100
--- NOTE | 2021-11-24 12:15 | ED.GENADULT ---
HPI - General Adult General Chief complaint: Epistaxis Stated complaint: nose bleed x 1 month resolved Time Seen by Provider: 11/24/21 12:14 History of Present Illness HPI narrative: Patient is a 61-year-old female who comes to the ED today because she has been having frequent nosebleeds. She tells me over the last 1 months she has had about 6 separate nosebleeds. She is on Xarelto and also aspirin. According to the EMS report patient did not have a nosebleed when they picked her up. At some point while waiting for me to see the patient or in route she developed another nosebleed which has since stopped. She feels fine currently. Says that normally when these nosebleeds happen she puts tissue into the left side of the nose which is is the one that is always bleeding. Related Data Allergies Allergy/AdvReac Type Severity Reaction Status Date / Time No Known Allergies Allergy Unverified 12/21/17 14:39 Review of Systems Constitutional: Constitutional: Reports as per HPI, Denies fever(s), Denies night sweats and Denies weakness ENT: Comments: See HPI for frequent epistaxis Cardiovascular: Cardiovascular: Denies chest pain, Denies edema, Denies leg edema, Denies dyspnea and Denies orthopnea Respiratory: Respiratory: Denies cough and Denies dyspnea Gastrointestinal: Gastrointestinal: Denies abdominal pain, Denies constipation, Denies diarrhea, Denies nausea and Denies vomiting Musculoskeletal: Musculoskeletal: Denies abnormal gait, Denies back pain, Denies numbness and Denies tingling Neurologic: Denies Abnormal speech present, Denies abnormal gait, Denies numbness, Denies tingling and Denies weakness Psychiatric: Psychiatric: Denies homicidal ideation and Denies suicidal ideation [facility] Past Medical History Medical History (Updated 11/24/21 @ 14:40 by Keith Mei PA-C) Arthritis Hypertension Morbid obesity Paroxysmal atrial fibrillation Shingles Surgical History Surgical History (Updated 02/24/21 @ 22:13 by Christi Santos PA-C) No history of previous surgery Family History Family History Mother Hypertension Other Dementia Pancreatic cancer Social History Social History (Updated 02/24/21 @ 22:13 by Christi Santos PA-C) Social History: Surrogate decision maker: Charleen Perez, child. Code status: Full code. Smoking status: Never smoker Alcohol intake: never Substance use: never Additional living arrangements comments: Patient lives [place] with her daughter and grandson. 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 Gender identity (if verbalized by the patient): Female Spiritual care concerns: No Exam Const: General: cooperative, healthy appearing, comfortable, no acute distress, well developed, alert, awake and Physically active Orientation/consciousness: patient oriented x3 HENMT: Head: normal to inspection, normocephalic and atraumatic Ears: external ears normal General nose exam: Normal external nose present Nose image: 1. There is dried blood at the end of left naris from recent epistaxis that has resolved. Eyes: Pupils: Equal, round and reactive pupils present EOM: EOMs intact bilaterally Neck: Neck: normal visual inspection Chest: Chest palpation & inspection: normal inspection of the chest and no tenderness Resp: Effort & Inspection: normal respiratory effort and able to speak in complete sentences Auscultation: clear to auscultation bilaterally Cardio: Rate: regular rate Rhythm: regular rhythm GI: Inspection: normal to inspection GI Palp: No abdominal tenderness : General: Yes no CVA tenderness Back/Spine/Pelvis: Back: no CVA tenderness Skin: General skin exam: normal color and no rashes or lesions noted Lesions: no lesions Neuro: General: patient oriented x3, no focal motor deficits and CN's II-XI intact bilaterally
[2021-11-24 14:50] VITALS: BP 121/55; PULSE 88; RESP 18; TEMP 36.8; O2SAT 99
--- NOTE | 2021-11-24 17:05 | PC.NURSE ---
[facility] contacted and stated patient will have to take an ambulance ride back. patient states she does not want to pay for that and will contact friends and family. Patient states her ride is on her way. Patient discharged and transferred out via wheelchair. Patient instructed to utilize saline drops and afrin as needed for nose bleed. follow up with ENT and ortho. Return to the ED for onset of new worrisome symptom.
== END 2021-11-24 14:50 ==
PROVIDERS: Emergency Provider Emergency Medicine
DX: R04.0 Epistaxis (principal); I48.0 Paroxysmal atrial fibrillation; I10 Essential (primary) hypertension; M19.90 Unspecified osteoarthritis, unspecified site; Z79.01 Long term (current) use of anticoagulants; Z79.82 Long term (current) use of aspirin
CPT/HCPCS: 99283